=== PATIENT | male | born 1930 | race Caucasian/White ===

== ENCOUNTER 2017-09-13 13:35 | Inpatient (IN) | payer OTHER ==
--- NOTE | 2017-09-13 13:49 | EDPHY ---
H & P Stated Complaint: FELL AT [place] PARK HPI/ROS: CHIEF COMPLAINT: Left hip pain secondary to a fall HISTORY OF PRESENT ILLNESS: The patient is an 87 y/o male complaining of left hip pain secondary to falling today. While walking his dog he tripped over the leash and landed on his left hip. He has been unable to bear weight on the leg since, but was able to drive himself to the hospital. Denies chest pain, loss of consciousness, hitting his head, numbness, weakness, other injury. REVIEW OF SYSTEMS: A ten point review of systems was performed and is negative with the exception of the items mentioned in the HPI. Past medical history: Hypertension Bronchitis Past surgical history: L4-5 Fusion Cervical fusion, 2012 Tonsillectomy Family history: Noncontributory Social history: Lives in [place] [employer] General Appearance: Alert. Vital signs reviewed. Blood pressure 159/98. Room air pulse ox 84% at triage. Head: Normocephalic, atraumatic. Eyes: Pupils equal and round, no conjunctival injection, no discharge. Anicteric. ENT, Mouth: Mucous membranes are moist, no oropharyngeal erythema or edema. Neck: Nontender to palpation over the cervical spine in the midline. Respiratory: Lungs are clear to auscultation; no wheezes, rales, or rhonchi. Cardiovascular: Regular rate and rhythm; no murmur, rub, or gallop. Gastrointestinal: Abdomen is soft and nontender, no masses or organomegaly, bowel sounds normal. Skin: Warm and dry, no rashes on exposed skin, normal color. Back: Nontender to palpation over the thoracolumbar spine. Extremities: Left hip tenderness with palpation laterally. No swelling or bruising. Pain with attempt to move left leg, prefers to keep leg flexed at knee and hip. Slightly foreshortened, no obvious external rotation. Pulses:2+ dorsalis pedis pulses bilaterally. Neurological: Alert and oriented. PERRL. EOMI. Facial expressions symmetric. Tongue midline. Sensation intact to LT over all four extremities. Grossly normal strength RLE, bilateral UEs. Psychiatric: Normal affect. - Personal History Tetanus Vaccine Date: >10 YRS 1998 - Medical/Surgical History Hx Asthma: No Hx Chronic Respiratory Disease: No Hx Diabetes: No Hx Cardiac Disease: No Hx Renal Disease: No Hx Cirrhosis: No Hx Alcoholism: No Hx HIV/AIDS: No Hx Splenectomy or Spleen Trauma: No Other PMH: PMH: ortho surgeries L4-5 fusion, cervical fusion 2011. PSH: tonsels. htn, bronchitis, pain, pna - Social History Smoking Status: Former smoker Constitutional: Initial Vital Signs Temperature (C) 36.7 C 09/13/17 13:43 Heart Rate 71 09/13/17 13:43 Respiratory Rate 16 09/13/17 13:43 Blood Pressure 159/98 H 09/13/17 13:43 O2 Sat (%) 84 L 09/13/17 13:43 O2 Delivery Mode Nasal Cannula O2 (L/minute) 2 Allergies/Adverse Reactions: Penicillins Allergy (Intermediate, Verified 09/23/11 15:04) KNUCKLES SWE Home Medications: Medication Instructions Recorded Aspirin [Aspirin 81mg (*)] 81 mg PO BID 09/19/11 Herbals/Supplements -Info Only 1 ea PO DAILY 09/19/15 Calcium Carbonate [Oyster Shell 500 mg PO DAILY 02/01/16 Calcium 500 mg (*)] Cholecalciferol Vit D3 [Vitamin D3 1,000 units PO DAILY 02/01/16 (*)] Cyanocobalamin [Vitamin B12 (*)] 1,000 mcg PO DAILY 02/01/16 Gabapentin 100 mg PO HS PRN 02/01/16 Glucosam/Chondr/Collagn/Hyalur 1 each PO BID 02/01/16 [Glucosamine & Chondroitin Cap] Melatonin [Melatonin 3 MG (*)] 3 mg PO HS PRN 02/01/16 Multivitamins [Multivitamin (*)] 1 each PO DAILY 02/01/16 [place]-3 Fatty Acids [Fish Oil 1000 2,000 mg PO DAILY 02/01/16 mg (*)] Acetaminophen [Tylenol 325mg (*)] 650 mg PO Q4 PRN #0 tab 02/03/16 Cyclobenzaprine [Flexeril 10 MG 10 mg PO TID PRN 09/13/17 (*)] Ibuprofen [Motrin (*)] 200 mg PO Q8 PRN 09/13/17 Sennosides/Docusate Sodium 1 - 2 tab PO BID tab 09/16/17 [Senokot-S] Tears/Dextran 70/Hypromellose 1 drop EACHEYE Q2HRS PRN opht.btl 09/16/17 [Natural Balance Tears (*)] oxyCODONE IR [Oxycodone Ir (*)] 2.5 - 5 mg PO Q4 PRN tab 09/16/17 Medical Decision Making - Diagnostics Imaging: I viewed and interpreted images myself ED Course/Re-evaluation: The patient is an 87 y/o male presenting with left hip pain and inability to bear weight on his left leg secondary to tripping over a dog leash today. On exam he has 2+ dorsalis pedis pulses. His O2Sats are 84% at triage, he is normally between 92-94%. 75mcg IV Fentanyl administered. Last ate and drank at 10:00 this morning. No fracture visible on left hip Xray. 1442: Reassessed patient and discussed imaging findings. He is still unable to bear weight on his left leg. Left hip CT ordered. 1515: Nurse reports that the patient declined Fentanyl initially, but is now wanting some pain medication. 1700: Consulted with Dr. Haji, orthopedic surgeon. CT scan shows a left non- displaced femoral neck fracture. Dr. Haji will admit him for surgery today. 1706: Reassessed patient and discussed imaging results. I have also discussed the plan for admission and surgery; patient is comfortable with this plan. 1714: Spoke with Dr. Vail, hospitalist, he will see patient in ED to medically clear him for surgery. EKG evaluated by me and reported in [facility]. LBBB--not new per patient. CXR without acute findings. Labs reviewed. Differential Diagnosis: DDX includes but is not limited to hip fracture, hip dislocation, sprain/strain , bursitis, vertebral fracture. - Data Points Laboratory Results: Laboratory Results 09/13/17 14:35 09/13/17 14:35 Medications Given: Acetaminophen (Tylenol) 650 mg PO Q4HRS PRN PRN Reason: Pain, Mild/Fever, Can Take PO Stop: 03/12/18 17:16 Last Admin: 09/16/17 07:58 Dose: 650 mg Bisacodyl (Dulcolax Rectal) 10 mg OR DAILY PRN; Protocol PRN Reason: Constipation Stop: 03/12/18 17:57 Last Admin: 09/15/17 17:07 Dose: 10 mg Calcium Carbonate (Oyster Shell Calcium) 500 mg PO DAILY [facility] Stop: 03/13/18 08:59 Last Admin: 09/16/17 07:58 Dose: 500 mg Cholecalciferol (Vitamin D) 1,000 units PO DAILY [facility] Stop: 03/13/18 08:59 Last Admin: 09/16/17 07:58 Dose: 1,000 units Cyclobenzaprine HCl (Flexeril) 10 mg PO TID PRN PRN Reason: Spasms Stop: 03/12/18 19:52 Last Admin: 09/13/17 22:51 Dose: 10 mg Enoxaparin Sodium (Lovenox) 40 mg SC DAILY [facility] Stop: 03/14/18 08:59 Last Admin: 09/16/17 07:57 Dose: 40 mg Glucosamine/Chondroitin (Glucosamine/Chondroitin) 1 each PO BID [facility] Stop: 03/12/18 20:59 Last Admin: 09/16/17 07:58 Dose: 1 each Miscellaneous Medication (Non-Formulary) 1 ea PO TIDMEAL [facility] Stop: 03/13/18 11:59 Last Admin: 09/16/17 11:58 Dose: 1 cap Miscellaneous Medication (Non-Formulary) 3 ea PO DAILY [facility] Stop: 03/13/18 08:59 Last Admin: 09/16/17 07:59 Dose: 3 cap Multivitamins (Tab-A-Feliciano) 1 each PO DAILY [facility] Stop: 03/13/18 08:59 Last Admin: 09/16/17 07:58 Dose: 1 each Evyix-0-Hznx Ethyl Esters (Fish Oil) 2,000 mg PO DAILY [facility] Stop: 03/13/18 08:59 Last Admin: 09/16/17 07:58 Dose: 2,000 mg Oxycodone HCl (Oxycodone Ir) 2.5 - 5 mg PO Q4 PRN PRN Reason: Pain, Severe Able to Take PO Stop: 09/23/17 17:16 Last Admin: 09/16/17 11:57 Dose: 5 mg Polyethylene Glycol (Miralax) 17 gm PO DAILY PRN; Protocol PRN Reason: Constipation, patient prefers Stop: 03/12/18 17:57 Last Admin: 09/16/17 07:59 Dose: 17 gm Senna/Docusate Sodium (Senokot-S) 1 - 2 tab PO BID [facility] PRN Reason: Protocol Stop: 03/12/18 20:59 Last Admin: 09/16/17 07:57 Dose: 2 tab Vitamin B Complex (Vitamin B12) 1,000 mcg PO DAILY [facility] Stop: 03/13/18 08:59 Last Admin: 09/16/17 07:58 Dose: 1,000 mcg Discontinued Medications Bupivacaine HCl (Sensorcaine 0.5% Vial) Confirm Administered Dose 30 ml .ROUTE .STK-MED ONE Stop: 09/13/17 17:30 Last Admin: 09/13/17 18:00 Dose: 30 ml Fentanyl (Sublimaze) 75 mcg IVP EDNOW ONE Stop: 09/13/17 14:09 Last Admin: 09/13/17 14:40 Dose: Not Given Fentanyl (Sublimaze) 50 mcg IVP EDNOW ONE Stop: 09/13/17 15:26 Last Admin: 09/13/17 15:34 Dose: 50 mcg Fentanyl (Sublimaze) 25 - 100 mcg IVP Q5M PRN PRN Reason: PACU, IMMEDIATE Pain control Stop: 09/13/17 20:05 Last Admin: 09/13/17 20:02 Dose: 25 mcg Hydromorphone HCl (Dilaudid) 0.2 mg IVP Q2HRS PRN PRN Reason: Pain, Severe Unable to Take PO Stop: 09/23/17 19:36 Last Admin: 09/14/17 00:40 Dose: 0.2 mg Sodium Chloride (Ns) 1,000 mls @ 100 mls/hr IV EDNOW ONE Stop: 09/14/17 03:11 Last Admin: 09/13/17 17:16 Dose: 1,000 mls Cefazolin Sodium 2 gm/ Sodium (Chloride) 100 mls @ 200 mls/hr IV EDNOW ONE PRN Reason: Protocol Stop: 09/13/17 18:28 Last Admin: 09/13/17 22:10 Dose: Not Given Potassium Chloride/Dextrose/Sod Cl (D5w 1/2 Ns W/ 20 Kcl/L) 1,000 mls @ 100 mls /hr IV CONT [facility] Stop: 03/12/18 18:14 Last Admin: 09/14/17 00:41 Dose: 1,000 mls Influenza Virus Vaccine Quadrival (Fluarix Quad [id number]) 0.5 ml IM .ONCE ONE Stop: 09/14/17 14:54 Last Admin: 09/14/17 15:23 Dose: 0.5 ml Lidocaine HCl (Lidocaine Hcl 1%) Confirm Administered Dose 300 mg .ROUTE .STK- MED ONE Stop: 09/13/17 17:30 Last Admin: 09/13/17 18:00 Dose: 300 mg Morphine Sulfate (Morphine) 0.5 - 2 mg IVP Q2 PRN PRN Reason: Pain, Severe Unable to Take PO Stop: 09/23/17 17:16 Last Admin: 09/14/17 01:52 Dose: 2 mg Oxycodone HCl (Oxycodone Ir) 2.5 - 10 mg PO Q4 PRN PRN Reason: Pain, Severe Able to Take PO Stop: 09/23/17 17:16 Last Admin: 09/15/17 05:44 Dose: 5 mg Pneumococcal 13-Valent Conj Vacc (Prevnar 13 Syringe) 0.5 ml IM .ONCE ONE Stop: 09/14/17 14:54 Last Admin: 09/14/17 15:19 Dose: 0.5 ml Potassium Chloride (Klor-Con) 10 - 40 meq PO ONCE ONE PRN Reason: Protocol Stop: 09/14/17 07:04 Last Admin: 09/14/17 09:52 Dose: 10 meq Potassium Chloride (Klor-Con) 10 - 40 meq PO ONCE ONE PRN Reason: Protocol Stop: 09/14/17 09:46 Last Admin: 09/14/17 10:30 Dose: Not Given Potassium Chloride (Klor-Con) 10 - 40 meq PO ONCE ONE PRN Reason: Protocol Stop: 09/14/17 19:30 Last Admin: 09/14/17 20:45 Dose: 20 meq Potassium Chloride (Klor-Con) 10 meq PO ONCE ONE PRN Reason: Protocol Stop: 09/15/17 08:21 Last Admin: 09/15/17 08:55 Dose: 10 meq Departure - Departure Disposition: [facility] Acute Clinical Impression: Hip fracture, left Qualifiers: Encounter type: initial encounter Fracture type: closed Qualified Code(s): S72.002A - Fracture of unspecified part of neck of left femur, initial encounter for closed fracture Condition: Fair Report Scribed for: Tiana Pederson Report Scribed by: Janine Ron Date of Report: 09/13/17 Time of Report: 14:06 Physician Review and Approval Statement: 09/13/17 13:49 Portions of this note were transcribed by the medical transcriber. I, Dr. Tiana Pederson, personally performed the history, physical exam, and medical decision- making; and confirmed the accuracy of the information in the transcribed note.
[2017-09-13] MEDS ORDERED: fentaNYL 100 MCG/2 ML INJ IVP ONE ×2 (14:08→15:25)
[2017-09-13 17:10] LABS: % IMMATURE GRANULYOCYTES 0.4 % (0.0-1.1); ABSOLUTE IMMATURE GRANULOCYTES 0.08 10^3/uL (0.00-0.10); ADD DIFF? NO; ADD MORPH? NO; ADD SCAN? NO; ATYPICAL LYMPHOCYTE FLAG 0 (0-99); FRAGMENT RBC FLAG 0 (0-99); HEMATOCRIT 46.7 % (40.0-51.0); HEMOGLOBIN 16.1 g/dL (13.7-17.5); LEFT SHIFT FLG 0 (0-99); LIPEMIA HEMOLYSIS FLAG 90 (0-99); MEAN CELL HEMOGLOBIN 31.8 pg (27.9-34.1); MEAN CELL HEMOGLOBIN CONCENTR. 34.5 g/dL (32.4-36.7); MEAN CELL VOLUME 92.3 fL (81.5-99.8); MEAN PLATELET VOLUME 9.8 fL (8.7-11.7); PLATELET CLUMPS FLAG 10 (0-99); PLATELET COUNT 158 10^3/uL (150-400); RED BLOOD CELL COUNT 5.06 10^6/uL (4.40-6.38); RED CELL DISTRIBUTION WIDTH 13.9 % (11.5-15.2)
[2017-09-13] MEDS ORDERED: NS 1,000 ML IV ONE (17:12)
[2017-09-13] MEDS ORDERED: ONDANSETRON 4 MG/2 ML VIAL IVP PRN ×2 (17:17→19:05)
[2017-09-13] MEDS ORDERED: ONDANSETRON DISINTEGRATING 4 MG TAB PO PRN (17:17)
[2017-09-13 17:18] LABS: ANION GAP 11 mEq/L (8-16); CARBON DIOXIDE 27 mEq/l (22-31); CHLORIDE 104 mEq/L (97-110); CREATININE 1.3 mg/dL (0.7-1.3); GLOMERULAR FILTRATION RATE 52; GLUCOSE 94 mg/dL (70-100); POTASSIUM 3.3 mEq/L (3.5-5.2); SODIUM 142 mEq/L (134-144)
--- NOTE | 2017-09-13 17:22 | CPEKG ---
Heart Rate: 70 RR Interval: 857 QRSD Interval: 168 QT Interval: 452 QTC Interval: 488 QRS [place]: -69 T Wave [place]: 112 EKG Severity - ABNORMAL ECG - EKG Impression: ACCELERATED JUNCTIONAL RHYTHM EKG Impression: LEFT BUNDLE BRANCH BLOCK Electronically Signed By: Tiana Pederson 13-Sep-2017 20:51:16
[2017-09-13] MEDS ORDERED: BUPIVACAINE 0.5% 30 ML SDV ONE (17:29)
[2017-09-13] MEDS ORDERED: LIDOCAINE 1% 300 MG/30 ML SDV ONE (17:29)
[2017-09-13] MEDS ORDERED: D5W 1/2 NS 1,000 ML IV SCH (17:30)
[2017-09-13 17:38] LABS: INR 1.08 (0.83-1.16); PROTIME(PATIENT) 13.9 SEC (12.0-15.0)
[2017-09-13 17:39] LABS: APTT 31.6 SEC (23.0-38.0)
[2017-09-13] MEDS ORDERED: MAGNESIUM HYDROXIDE 30 ML UDCUP PO PRN (17:58)
[2017-09-13] MEDS ORDERED: LACTULOSE 20 GM/30 ML UDCUP PO PRN (17:58)
[2017-09-13] MEDS ORDERED: BISACODYL 10 MG SUPP PR PRN (17:58)
[2017-09-13] MEDS ORDERED: ceFAZolin 2 GM in NS 100 ML IV ONE (17:59)
[2017-09-13] MEDS ORDERED: ceFAZolin 2 GM/SWFI 20 ML SYR IVP ONE (18:00)
--- NOTE | 2017-09-13 18:02 | PDGENHP ---
History and Physical - Chief Complaint Acute hip pain - History of Present Illness Primary care provider: Dr. Damaris Hannon Primary neurosurgeon Dr. Cristino Flower Primary neurologist: Dr. Hesham Kuhn Primary customizer: Dr. Shon Calhoun HPI: 87-year-old male presenting with acute pain characterized as sharp, located in his left hip, with associated mechanical fall, onset of symptoms on the afternoon of presentation and duration persistent thereafter. The patient had otherwise been feeling well when he went to the dog park with his husky. His testes recently been noted and was behaving very aggressively, and the patient attempted to stabilize the dog. This resulted in a mechanical fall, landing on his left hip, immediately experiencing pain. The patient attempted to ambulate, experienced exacerbation of his pain, was unable to ambulate. He required physical assistance to get to the emergency department. Upon arrival, he received IV pain medication and this seemed to alleviate some of his pain, at rest. Patient's leg is notably externally rotated and shortened, and CT did identify a nondisplaced femoral neck fracture. Patient took all his home medications on the morning of presentation, he reports that approximately 6 weeks ago experienced an acute gout flare. He treated that flare with prednisone, indomethacin, and held his daily aspirin dose. He has not recently been taking aspirin as result of that. He otherwise reports that he has been eating and drinking well, urinating regularly and moving his bowels normally. Is not currently receiving any narcotic pain medication. He reports that he participates and calisthenics exercises 4-5 times per week, and he engage in these on the morning of presentation. He has not recently noted any chest pain or reduction in exercise tolerance. History Information - Allergies/Home Medication List Allergies/Adverse Reactions: Penicillins Allergy (Intermediate, Verified 09/23/11 15:04) DHAVAL SAMAYOA Home Medications: Aspirin [Aspirin 81mg (*)] 81 mg PO BID 09/19/11 [Last Taken 09/19/15] Herbals/Supplements -Info Only 1 ea PO DAILY 09/19/15 [Last Taken Unknown] Calcium Carbonate [Oyster Shell Calcium 500 mg (*)] 500 mg PO DAILY 02/01/16 [ Last Taken Unknown] Cholecalciferol Vit D3 [Vitamin D3 (*)] 1,000 units PO DAILY 02/01/16 [Last Taken Unknown] Cyanocobalamin [Vitamin B12 (*)] 1,000 mcg PO DAILY 02/01/16 [Last Taken ] Gabapentin 100 mg PO HS PRN 02/01/16 [Last Taken Unknown] Glucosam/Chondr/Collagn/Hyalur [Glucosamine & Chondroitin Cap] 1 each PO BID 05/11 [Last Taken Unknown] Melatonin [Melatonin 3 MG (*)] 3 mg PO HS PRN 02/01/16 [Last Taken Unknown] Multivitamins [Multivitamin (*)] 1 each PO DAILY 02/01/16 [Last Taken Unknown] [place]-3 Fatty Acids [Fish Oil 1000 mg (*)] 2,000 mg PO DAILY 02/01/16 [Last Taken Unknown] Cyclobenzaprine [Flexeril 10 MG (*)] 10 mg PO TID PRN 09/13/17 [Last Taken Unknown] Hydrochlorothiazide [HCTZ (*)] 25 mg PO DAILY 09/13/17 [Last Taken 09/13/17] Ibuprofen [Motrin (*)] 200 mg PO Q8 PRN 09/13/17 [Last Taken Unknown] Indomethacin [Indocin 25 mg (*)] 25 mg PO Q8 PRN 09/13/17 [Last Taken Unknown] I have personally reviewed and updated: family history, medical history, social history, surgical history - Past Medical History Additional medical history: Reportedly left bundle branch block. Chronic kidney disease stage 3 with baseline creatinine 1.1-1.3. Gout. Chronic neck and back pain. Chronic nocturnal hypoxia, has been recommended home oxygen. Chronic mechanical falls - Surgical History Additional surgical history: Cervical and lumbar spine fusion in 2014. Tonsillectomy - Family History Additional family history: Mother and father both had cancer and in their 60s - Social History Smoking Status: Former smoker Alcohol Use: None Drug Use: None Additional social history: Reports good physical exercise tolerance, active on a daily basis Review of Systems Review of Systems: ROS: 10pt was reviewed & negative except for what was stated in HPI & below Muscolosketal: Reports: other (Left hip pain) Physical Exam Physical Exam: Temp Pulse Resp BP Pulse Ox 36.9 C 70 16 141/67 H 95 09/13/17 17:52 09/13/17 17:52 09/13/17 17:52 09/13/17 17:52 09/13/17 17:52 O2 (L/minute) 2 Constitutional: no apparent distress, appears nourished, chronically ill appearing, uncomfortable Eyes: PERRL, anicteric sclera, EOMI Ears, Nose, Mouth, Throat: hearing normal, dry mucous membranes Cardiovascular: regular rate and rhythym, no murmur, rub, or gallop, edema ( Trace bilateral lower extremity edema) Respiratory: no respiratory distress, no rales or rhonchi, clear to auscultation Gastrointestinal: normoactive bowel sounds, soft, non-tender abdomen, no palpable masses, No distension Skin: other (No erythema or ecchymoses over left hip) Musculoskeletal: other (Left lower extremity is shortened and externally rotated , tenderness over the left hip laterally) Neurologic: AAOx3, sensation intact bilaterally, No weakness (Motor strength 5/ 5 bilateral distal feet) Psychiatric: interacting appropriately, not anxious, not encephalopathic, thought process linear Lab Data & Imaging Review 09/13/17 14:35 09/13/17 14:35 WBC 18.80 10^3/uL (3.80-9.50) H 09/13/17 14:35 RBC 5.06 10^6/uL (4.40-6.38) 09/13/17 14:35 Hgb 16.1 g/dL (13.7-17.5) 09/13/17 14:35 Hct 46.7 % (40.0-51.0) 09/13/17 14:35 MCV 92.3 fL (81.5-99.8) 09/13/17 14:35 MCH 31.8 pg (27.9-34.1) 09/13/17 14:35 MCHC 34.5 g/dL (32.4-36.7) 09/13/17 14:35 RDW 13.9 % (11.5-15.2) 09/13/17 14:35 Plt Count 158 10^3/uL (150-400) 09/13/17 14:35 MPV 9.8 fL (8.7-11.7) 09/13/17 14:35 Neut % (Auto) 70.1 % (39.3-74.2) 09/13/17 14:35 Lymph % (Auto) 25.0 % (15.0-45.0) 09/13/17 14:35 Hand % (Auto) 4.1 % (4.5-13.0) L 09/13/17 14:35 Eos % (Auto) 0.2 % (0.6-7.6) L 09/13/17 14:35 Baso % (Auto) 0.2 % (0.3-1.7) L 09/13/17 14:35 Nucleat RBC Rel Count 0.0 % (0.0-0.2) 09/13/17 14:35 Absolute Neuts (auto) 13.18 10^3/uL (1.70-6.50) H 09/13/17 14:35 Absolute Lymphs (auto) 4.70 10^3/uL (1.00-3.00) H 09/13/17 14:35 Absolute Monos (auto) 0.77 10^3/uL (0.30-0.80) 09/13/17 14:35 Absolute Eos (auto) 0.03 10^3/uL (0.03-0.40) 09/13/17 14:35 Absolute Basos (auto) 0.04 10^3/uL (0.02-0.10) 09/13/17 14:35 Absolute Nucleated RBC 0.00 10^3/uL (0-0.01) 09/13/17 14:35 Immature Gran % 0.4 % (0.0-1.1) 09/13/17 14:35 Immature Gran # 0.08 10^3/uL (0.00-0.10) 09/13/17 14:35 PT 13.9 SEC (12.0-15.0) 09/13/17 14:35 INR 1.08 (0.83-1.16) 09/13/17 14:35 APTT 31.6 SEC (23.0-38.0) 09/13/17 14:35 Sodium 142 mEq/L (134-144) 09/13/17 14:35 Potassium 3.3 mEq/L (3.5-5.2) L 09/13/17 14:35 Chloride 104 mEq/L (97-110) 09/13/17 14:35 Carbon Dioxide 27 mEq/l (22-31) 09/13/17 14:35 Anion Gap 11 mEq/L (8-16) 09/13/17 14:35 BUN 30 mg/dL (7-23) H 09/13/17 14:35 Creatinine 1.3 mg/dL (0.7-1.3) 09/13/17 14:35 Estimated GFR 52 09/13/17 14:35 Glucose 94 mg/dL (70-100) 09/13/17 14:35 Calcium 10.0 mg/dL (8.5-10.4) 09/13/17 14:35 Visualized and Interpreted EKG results: Yes EKG Interpretation: Positive for: left bundle branch block Assessment & Plan Assessment: 87-year-old male presenting with acute left femoral neck fracture requiring surgical intervention Plan: 1. Femoral neck fracture. Acute, present on CT imaging, secondary to mechanical fall -discussed with Dr. Nick Seymour, we agree that patient should go to the OR this evening and that no further cardiac risk stratification is indicated -RCRI score is 1, conferring 1.5% perioperative risk of cardiovascular morbidity and/or mortality, resulting in low CV risk for an intermediate risk surgery -to mitigate such risks, would recommend monitoring his renal function postoperatively, monitoring for any evidence of chest pain, anticipate that he will require ongoing supplemental oxygen at time of discharge given that he has was describes nocturnal hypoxia and possibly chronic hypoxic respiratory failure -pain medication as needed, bowel regimen ordered, incentive spirometer ordered -continue to monitor serum hemoglobin postoperatively -NPO presently, can be advanced to regular diet thereafter 2. Left bundle-branch block. Reportedly chronic per patient, order outside records from Dr. Calhoun office to verify this, patient currently with no chest pain and normal exercise tolerance, no further cardiac risk stratification indicated at this time -reviewed outside records demonstrates last known stress test in 2010, reportedly normal -patient currently holding aspirin following his gout flare 6 weeks ago, recommend initiating aspirin postoperatively depending on whether there are any bleeding risks 3. Chronic kidney disease stage 3. Baseline serum creatinine 1.1-1.3, continue to monitor postoperatively 4. Suspected chronic hypoxic respiratory failure. Status post bronchoscopy in 2010, no malignancy seen at that time, is been recommend to the patient that he utilize at least nocturnal oxygen and possibly daytime -continue on supplemental oxygen at this time, gather room air sats postoperatively use incentive spirometer 5. Hypertension. Patient has had numerous antihypertensives discontinued recently, his systolic blood pressure is mildly elevated in the setting of pain , continue to monitor and consider restarting antihypertensive postoperatively if needed 6. Mechanical fall. Patient is high risk for ongoing mechanical falls, and review of outside records including 02/03/[address] Edy Vail reports that the patient had paresis in mechanical falls in the setting of acute gout flare, as recommended the patient that he follow up with Neurology and obtain an outpatient EMG -anticipate protracted recovery following his hip repair, physical occupational therapy ordered, senior living facility placement hereafter is certainly possible Diet. Regular after surgery Prophylaxis. High risk patient, SCDs perioperatively, Lovenox 40 to begin on 11 /8:00 p.m. if no bleeding complications Code. Full per patient, is MPOA Disposition. Anticipated discharge is uncertain this time, anticipated length stay is greater than 48 hours for reasonable medical necessity including acute hip fracture warranting surgical repair in the setting of anticipated protracted recovery with baseline chronic mechanical falls. Discussed with Dr. Tiana Pederson in the emergency department, she and I both agreed the patient warrants inpatient admission at this time for surgical repair.
--- NOTE | 2017-09-13 18:05 | SOAPPROG ---
SOAP Progress Note Assessment/Plan: Assessment: Tong is a pleasant 87 year old male who sustained a fall onto his left hip earlier today. He was unable to weight bear and was taken to [facility] ER where he was found to have a nondisplaced femoral neck fracture. PE: Pain with passive ROM of the left hip TTP overlying the left hip NV intact LLE Plan: Risks, benefits, alternatives to both operative and non-operative treatment were discussed. Patient fully understands the risks, benefits, and alternatives and would like to proceed with left femoral neck ORIF. Medical clearance was obtained from the hospitalist and he will be taken to the operating room at its earliest availability. 09/13/17 18:03 Objective: Vital Signs Temp Pulse Resp BP Pulse Ox 36.9 C 70 16 141/67 H 95 09/13/17 17:53 09/13/17 17:53 09/13/17 17:53 09/13/17 17:53 09/13/17 17:53 09/12/17 09/13/17 09/14/17 05:59 05:59 05:59 Intake Total 250 Balance 250 PT 13.9 SEC (12.0-15.0) 09/13/17 14:35 INR 1.08 (0.83-1.16) 09/13/17 14:35 ICD10 Worksheet Patient Problems: Problems Problem Status Onset Hip fracture, left Acute Anemia Acute Frequent falls Acute Generalized weakness Acute Left lower lobe pneumonia Acute Left rib fracture Acute Chronic obstructive lung disease Chronic Hypertension Chronic
--- NOTE | 2017-09-13 18:07 | SOAPPROG ---
SOAP Progress Note Assessment/Plan: Assessment: Tong is a pleasant 87 year old male now POD#0 from left femoral neck ORIF. PE: Operative dressing in place NV intact LLE Plan: 1. WBAT LLE with assistance 2. PT/OT for gait training 3. Reinforce dressing if needed. 4. Lovenox for DVT prophylaxis 5. Pain medication as needed 6. H&H tomorrow AM 7. Case management referral for discharge planning. 09/13/17 19:41 Objective: Vital Signs Temp Pulse Resp BP Pulse Ox 36.9 C 70 16 141/67 H 95 09/13/17 17:53 09/13/17 17:53 09/13/17 17:53 09/13/17 17:53 09/13/17 17:53 09/12/17 09/13/17 09/14/17 05:59 05:59 05:59 Intake Total 250 Balance 250 PT 13.9 SEC (12.0-15.0) 09/13/17 14:35 INR 1.08 (0.83-1.16) 09/13/17 14:35 ICD10 Worksheet Patient Problems: Problems Problem Status Onset Hip fracture, left Acute Anemia Acute Frequent falls Acute Generalized weakness Acute Left lower lobe pneumonia Acute Left rib fracture Acute Chronic obstructive lung disease Chronic Hypertension Chronic
--- NOTE | 2017-09-13 18:07 | PDANEPAE ---
ANE History of Present Illness 87 year old male for ORIF of left hip. ANE Past Medical History - Cardiovascular History Hx Hypertension: Yes Hx Arrhythmias: No Hx Chest Pain: No Hx Coronary Artery / Peripheral Vascular Disease: No Hx CHF / Valvular Disease: No Hx Palpitations: No Cardiovascular History Comment: LBBB, junctional rhythm - Pulmonary History Hx COPD: No Hx Asthma/Reactive Airway Disease: No Hx Recent Upper Respiratory Infection: No Hx Oxygen in Use at Home: No Hx Sleep Apnea: No - Endocrine History Hx Diabetes: No Hypothyroid: No Hyperthyroid: No Obesity: no - Renal History Hx Renal Disorders: No - Liver History Hx Hepatic Disorders: No - Neurological & Psychiatric Hx Hx Neurological and Psychiatric Disorders: No - Cancer History Hx Cancer: No - Chronic Pain History Chronic Pain: Yes ANE Review of Systems Review of systems is: negative Review of Systems: - Exercise capacity Exercise capacity: <4 METS ANE Patient History - Allergies Allergies/Adverse Reactions: Penicillins Allergy (Intermediate, Verified 09/23/11 15:04) DHAVAL SAMAYOA - Home Medications Home medications: home medication list seen and reviewed Home Medications: Aspirin [Aspirin 81mg (*)] 81 mg PO BID 09/19/11 [Last Taken 09/19/15] Herbals/Supplements -Info Only 1 ea PO DAILY 09/19/15 [Last Taken Unknown] Calcium Carbonate [Oyster Shell Calcium 500 mg (*)] 500 mg PO DAILY 02/01/16 [ Last Taken Unknown] Cholecalciferol Vit D3 [Vitamin D3 (*)] 1,000 units PO DAILY 02/01/16 [Last Taken Unknown] Cyanocobalamin [Vitamin B12 (*)] 1,000 mcg PO DAILY 02/01/16 [Last Taken ] Gabapentin 100 mg PO HS PRN 02/01/16 [Last Taken Unknown] Glucosam/Chondr/Collagn/Hyalur [Glucosamine & Chondroitin Cap] 1 each PO BID 05/11 [Last Taken Unknown] Melatonin [Melatonin 3 MG (*)] 3 mg PO HS PRN 02/01/16 [Last Taken Unknown] Multivitamins [Multivitamin (*)] 1 each PO DAILY 02/01/16 [Last Taken Unknown] [place]-3 Fatty Acids [Fish Oil 1000 mg (*)] 2,000 mg PO DAILY 02/01/16 [Last Taken Unknown] Cyclobenzaprine [Flexeril 10 MG (*)] 10 mg PO TID PRN 09/13/17 [Last Taken Unknown] Hydrochlorothiazide [HCTZ (*)] 25 mg PO DAILY 09/13/17 [Last Taken 09/13/17] Ibuprofen [Motrin (*)] 200 mg PO Q8 PRN 09/13/17 [Last Taken Unknown] Indomethacin [Indocin 25 mg (*)] 25 mg PO Q8 PRN 09/13/17 [Last Taken Unknown] - NPO status NPO Status: no food or drink >8 hours NPO Since - Liquids (Date): 09/13/17 NPO Since - Liquids (Time): 10:00 NPO Since - Solids (Date): 09/13/17 NPO Since - Solids (Time): 10:00 - Anes Hx Anes Hx: no prior problems - Smoking Hx Smoking Status: Former smoker - Alcohol Use Alcohol Use: None - Family Anes Hx Family Anes Hx: neg - N/A ANE Labs/Vital Signs - Labs Result Diagrams: 09/13/17 14:35 09/13/17 14:35 - Vital Signs Vital Signs: reviewed preoperatively; see RN documention for details Blood Pressure: 141/67 Heart Rate: 70 Respiratory Rate: 16 O2 Sat (%): 95 Height: 182.88 cm Weight: 93.44 kg ANE Physical Exam - Airway Neck exam: FROM Mallampati Score: Class 2 Mouth exam: poor dentition, noble - Pulmonary Pulmonary: no respiratory distress - Cardiovascular Cardiovascular: regular rate and rhythym - ASA Status ASA Status: II ANE Anesthesia Plan Anesthesia Plan: general endotracheal anesthesia Total IV Anesthesia: No
[2017-09-13] MEDS ORDERED: PROPOFOL 200 MG/20 ML VIAL ONE (18:08)
[2017-09-13] MEDS ORDERED: fentaNYL 100 MCG/2 ML INJ ONE ×2 (18:08→19:50)
[2017-09-13] MEDS ORDERED: D5W 1/2 NS W/ 20 KCl/L 1,000 ML IV SCH (18:15)
[2017-09-13] MEDS ORDERED: PHENYLEPHRINE HCL 100 MCG/ML SYR ONE (18:36)
--- NOTE | 2017-09-13 18:42 | PDMN ---
Medical Necessity Medical necessity: C/M review: est. > 2 MN LOS for eval and TX of acute nondisplaced left femorla neck fracture requiring planned urgent 09/13/2017 surgical intervention, comorbid mechanical fall just prior to this admit, left bundle branch block, chronic kidney disease stage 3, suspected chronic hypoxic respiratory failure, hypertension, hx mechanical falls per H/P.
[2017-09-13] MEDS ORDERED: HYDROmorphONE/DILAUDID 1 MG/ML INJ IVP PRN ×2 (19:05→19:37)
[2017-09-13] MEDS ORDERED: NALOXONE HCL 0.4 MG/ML INJ IVP PRN (19:05)
[2017-09-13] MEDS ORDERED: HYDROCODONE/APAP 5/325 TAB PO PRN (19:05)
[2017-09-13] MEDS ORDERED: LR 500 ML IV PRN (19:05)
[2017-09-13] MEDS ORDERED: LIDOCAINE 2% 5 ML SDV ONE (19:32)
[2017-09-13] MEDS ORDERED: ROCURONIUM 50 MG/5 ML VIAL ONE (19:32)
[2017-09-13] MEDS ORDERED: ONDANSETRON 4 MG/2 ML VIAL ONE (19:32)
[2017-09-13] MEDS ORDERED: SUGAMMADEX SODIUM 200 MG/2 ML VIAL IVP ONE (19:32)
--- NOTE | 2017-09-13 19:41 | POSTOPPROG ---
Post Op Note Date of Operation: 09/13/17 Surgeon: Nick Seymour Mortar Carrier: Shweta Manzanares PA-C Anesthesia: GET(General Endotracheal) Pre-op Diagnosis: left femoral neck fracture Post-op Diagnosis: left femoral neck fracture Procedure: ORIF left femoral neck fracture Inf/Abcess present in the surg proc area at time of surgery?: No Depth: Superfical (Skin SQ) EBL: Minimal
[2017-09-13] MEDS ORDERED: GABAPENTIN 100 MG CAP PO PRN (19:53)
[2017-09-13] MEDS ORDERED: MELATONIN 3 MG TAB PO PRN (19:53)
[2017-09-13] MEDS ORDERED: CYCLOBENZAPRINE 10 MG TAB PO PRN (19:53)
[2017-09-13] MEDS: fentaNYL 100 MCG/2 ML INJ IVP PRN ×2 (19:55→20:02)
--- NOTE | 2017-09-13 22:09 | GCON ---
[f rep st] CONSULTATION Patient Name: KAVIN PELLETIER N-Number: [id number] Date of : 1930 Patient Status: Inpatient Attending Doctor: Edy Vail MD Consulting Doctor: Nick Seymour MD Date of service: 09/13/17 CPT codes: CPT code 69872 ER visit requiring admission or initial inpatient visit, level three Modifier 57 Decision for surgery CHIEF COMPLAINT: Left hip pain HISTORY OF PRESENT ILLNESS: This is a very pleasant 87 year old male with a significant history for left hip hwang after a fall from standing earlier today (09/13/17). He was unable to bear weight on his left lower extremity following the fall so he was taken to the [facility] ED for evaluation. A CT scan of his pelvis demonstrated a left femoral neck fracture which was complete but minimally displaced. PROBLEM LIST: Left femoral neck fracture PAST MEDICAL HISTORY: HTN, Bronchitis SURGERIES: L4-L5 fusion, Cervical fusion, tonsillectomy SOCIAL HISTORY: Non-contributory FAMILY HISTORY: CURRENT MEDICATIONS: Aspirin, Herbal supplements, Vitamin D3, Vitamin B12, Gabapentin, Glucosamine Chondroitin, Melatonin, Metoprolol Tartrate, Multivitamin, Fish Oil, Tylenol, Colchicine, Robaxin, Senokot, prednisone ALLERGIES: Penicillins REVIEW OF SYSTEMS Constitutional: No unexpected weight loss, weight gain, fevers, chills, or fatigue. Eyes: No blurred or double vision, no eye pain, redness or swelling. ENT: No headaches, difficulty swallowing, nose bleeds, tinnitus, or earaches. Cardiovascular: No chest pain, palpitations, fainting or murmurs. Respiratory: No shortness of breath, wheezing, cough, of difficulty breathing. GI: No reflux, no nausea or vomiting, no constipation, diarrhea, or bloody stools. Genitourinary: No urinary frequency or urgency, no pain with urination. Skin: No skin changes, rashes, itching, or redness. Neurologic: No unsteadiness of gait, no dizziness, tremors, or seizures. Psychiatric: No nervousness, anxiety, depression, or hallucinations. Hematologic: No increased bleeding or easy bruising. Endocrine: No excessive thirst or urination and no heat or cold intolerances. Allergic: No reactions to food or environment. Musculoskeletal: See history of present illness. PHYSICAL EXAM General: No apparent distress. Orientation: Alert and oriented times three Mood and affect: Calm, appropriate. Gait and station: CESAR Skin: Warm, dry. Lymph: Non tender neck, axillary and inguinal nodes. Chest: Equal expansion, no pain with deep breaths, speaks in coherent sentences. Cardiovascular: Regular pulse. Abdomen: Soft, non-tender, no masses, no palpable hernias. Bilateral hip examination Inspection/palpation: Right: Soft, non-tender. Left: TTP diffusely throughout the left hip. Pain with gentle ROM Range of motion Flexion: 100 / CESAR / 100 Extension: 30 / CESAR / 30 Abduction: 40 / CESAR / 40 Adduction: 20 / CESAR / 20 Strength (R / L / Normal) Muscle(s) Quadriceps (L3-L4): 5 / 3 / 5 Hamstrings (L4-L5): 5 / 3 / 5 Tibialis anterior (L4): 5 / 3 / 5 EHL (L5): 5 / 3 / 5 FHL (S1): 5 / 3 / 5 Gastroc-soleus (S1): 5 / 3 / 5 Sensory (R / L / Normal) Dermatomes L1 (groin): + / + / + L2 (medial upper thigh): + / + / + L3 (anterior thigh): + / + / + L4 (medial ankle): + / + / + L5 (first dorsal web space): + / + / + S1 (lateral border of foot): + / + / + Peripheral nerves Superficial peroneal: + / + / + Deep peroneal: + / + / + Sural: + / + / + Tibial: + / + / + Saphenous: + / + / + Vascular exam (R / L / Normal) Dorsalis pedis: 2+ / 2+ / 2+ Tibialis posterior: 2+ / 2+ / 2+ Medical decision making Data Imaging study: AP pelvis and left hip radiographs Action: interpreted Interpretation / pertinent findings: possible left femoral neck fracture Imaging study: CT of the pelvis Action: interpreted Interpretation / pertinent findings: left femoral neck fracture, complete, minimally displaced Diagnoses New diagnosis: left femoral neck fracture, complete, minimally displaced Work-up planned: yes: see assessment and plan Assessment and plan This is a very pleasant 87 year old male s/p a left femoral neck fracture ( complete, minimally displaced) after a fall from standing earlier today () -As such I have discussed with the patient the risks, benefits, alternatives, and complications associated with both non-operative (specifically, observation ) and operative (specifically, left femoral neck reduction and internal fixation ) forms of treatment -The patient fully understands the risks, benefits, alternatives, and complications of both forms of treatment and the patient wishes to proceed with operative intervention as outlined above - Medical clearance was obtained and patient will be taken to the operating room at its earliest availability Time I have spent 80 minutes of [id number] time with the patient during this visit. Over fifty percent of this time was spent counseling the patient on the risks, benefits, alternatives, and complications of both non-operative and operative forms of treatment as outlined above. /[id number]/MODL MTDD
[2017-09-13] MEDS: SENNOSIDES/DOCUSATE SODIUM TAB PO SCH (22:38)
[2017-09-13] MEDS: oxyCODONE IR 5 MG TAB PO PRN (22:39)
[2017-09-13] MEDS: GLUCOSAMINE/CHONDROITIN CAP PO SCH (22:39)
--- NOTE | 2017-09-13 22:39 | GOP ---
[f rep st] OPERATIVE REPORT PATIENT: KAVIN PELLETIER DATE OF SERVICE: 09/13/17 PATIENT DATE OF : 1930 SURGEON: Nick Seymour M.D. HAND MIXER: Shweta Manzanares PA-C Mrs. Miller assistance was medically necessary for patient positioning and the retraction of vital structures. ANESTHESIA: General PRE-OPERATIVE DIAGNOSES: Left femoral neck fracture (ICD-10 code S72.009A femoral neck fracture) POST-OPERATIVE DIAGNOSES: Left femoral neck fracture (ICD-10 code S72.009A femoral neck fracture) OPERATIVE PROCEDURES: CPT code 26378 Percutaneous fixation of a femoral neck fracture EBL: 3cc COMPLICATIONS: None IMPLANTS: Three Synthes 6.5 mm cannulated, short-thread compression screws (95mm , 95mm and 105mm) BRIEF CLINICAL NOTE: This is a very pleasant 87 year old male with a significant history for a left femoral neck fracture which was complete but minimally displaced after injury earlier today (09/13/17). As such, I discussed the risks, benefits, alternatives, and complications associated with both non- operative (specifically, observation) and operative (specifically, left femoral neck reduction and internal fixation) forms of treatment. The patient fully understood the risks, benefits, alternatives, and complications associated with both forms of treatment and wished to proceed with operative intervention as outlined above. The patient signed the informed consent form for surgery. OPERATIVE NOTE: On the day of surgery, all of the patients questions were answered. The patient was then transferred from the pre-operative area into the operating room and a formal, Time-Out procedure was performed. The patient was identified by name, medical record number, social security number, and date of . In addition, the patients left lower extremity was identified as the correct portion of the patients body for surgery with the patients left femur being identified as the correct portion of that extremity for surgery. The anesthesia team administered pre-operative antibiotics for prophylaxis. The patient was then transferred onto the fracture table and the left lower extremity was placed into traction. The extremity was then prepped and draped in the normal sterile fashion. A sterile marking pen was then utilized to alessia out the greater trochanter and the starting point along the lateral femoral cortex for screw insertion. A 3cm incision was then made adjacent to the starting point along the lateral femoral cortex. Meticulous hemostasis was obtained in the subcutaneous plane. The IT band fascia was then incised longitudinally to provide access to the lateral femoral cortex. C-arm fluoroscopy was then utilized to insert the first guidewire in the inferior neck position. Guidewire positioning was confirmed on both PA and lateral C-arm fluoroscopy. Next, two additional guidewires were inserted in the cheryl-superior and postero-superior positions relative to the first guidewire. Guidewire placements were once again confirmed on both PA and lateral C-arm fluoroscopy. Next, all three guidewires were measured and over- drilled. Three screws were then inserted over the guidewires and then the guidewires were removed. Final PA and lateral C-arm fluoroscopy images were obtained which demonstrated anatomic alignment at the site of the fracture as well as appropriate implant positioning and length in all views. These images were printed and saved. The wound was then copiously irrigated with sterile normal saline. The fascia was re-approximated with 2-0 vicryl sutures and the skin was re-approximated with a 3-0 monocryl. Dermabond was then applied to the incision. Next, a mixture of 1% lidocaine and 0.5% Marcaine was then utilized to provide local anesthesia at the operative site. The skin was then cleaned with sterile normal saline and dried. A xeroform gauze dressing was then applied followed by a dry sterile dressing and an occlusive Ioban dressing. The patient was then reversed from anesthesia and transferred from the operating room table onto the post-operative gurney and transferred from the operating room to the PACU in stable condition. POST-OPERATIVE PLAN: The current dressing will be left in place for the next 2 days. The patient may WBAT on the left lower extremity. /[id number]/MODL MTDD
[2017-09-14] MEDS ORDERED: PROTOCOL POTASSIUM 1 DOSE MISC PRN (00:31)
[2017-09-14] MEDS ORDERED: TEARS/DEXTRAN 70/HYPROMELLOSE 15 ML OPHT.BTL EACHEYE PRN (00:32)
--- NOTE | 2017-09-14 00:36 | HOSPPROG ---
Hospitalist Progress Note Assessment/Plan: Hospitalist Night Float Note Paged by RN regarding pt c/o right eye pain approximtely 1 hour after arrival from PACU. No known injury. Unknown if patient had tape over his eyes. Denies any visual changes. RN has been applying normal saline drops regularly. Patient is reporting some improvement in his pain. Continues to have a little bit of tearing from the right eye. Right eye with conjunctival injection and some edema to lower lid. No evidence of cellulitis. Patient without any photophobia. I do not appreciate grossly any foreign bodies. New with p.r.n. natural tear drops. If symptoms do not resolve tomorrow may need to request Ophthalmology consult if available. Objective: Vital Signs Temp Pulse Resp BP Pulse Ox 36.9 C 69 14 129/61 H 95 09/14/17 00:11 09/14/17 00:11 09/14/17 00:11 09/14/17 00:11 09/14/17 00:11 09/12/17 09/13/17 09/14/17 05:59 05:59 05:59 Intake Total 920 Output Total 160 Balance 760 PT 13.9 SEC (12.0-15.0) 09/13/17 14:35 INR 1.08 (0.83-1.16) 09/13/17 14:35 ICD10 Worksheet Patient Problems: Problems Problem Status Onset Hip fracture, left Acute Anemia Acute Frequent falls Acute Generalized weakness Acute Left lower lobe pneumonia Acute Left rib fracture Acute Chronic obstructive lung disease Chronic Hypertension Chronic
[2017-09-14 04:52] LABS: % IMMATURE GRANULYOCYTES 0.5 % (0.0-1.1); ABSOLUTE IMMATURE GRANULOCYTES 0.08 10^3/uL (0.00-0.10); ADD DIFF? NO; ADD MORPH? NO; ADD SCAN? NO; ATYPICAL LYMPHOCYTE FLAG 10 (0-99); FRAGMENT RBC FLAG 0 (0-99); HEMATOCRIT 37.9 % (40.0-51.0); LEFT SHIFT FLG 0 (0-99); LIPEMIA HEMOLYSIS FLAG 90 (0-99); MEAN CELL HEMOGLOBIN 31.8 pg (27.9-34.1); MEAN CELL HEMOGLOBIN CONCENTR. 34.3 g/dL (32.4-36.7); MEAN CELL VOLUME 92.7 fL (81.5-99.8); MEAN PLATELET VOLUME 9.5 fL (8.7-11.7); PLATELET CLUMPS FLAG 10 (0-99); PLATELET COUNT 127 10^3/uL (150-400); RED BLOOD CELL COUNT 4.09 10^6/uL (4.40-6.38); RED CELL DISTRIBUTION WIDTH 13.6 % (11.5-15.2)
[2017-09-14 05:02] LABS: ANION GAP 8 mEq/L (8-16); CALCIUM 8.7 mg/dL (8.5-10.4); CARBON DIOXIDE 27 mEq/l (22-31); CHLORIDE 105 mEq/L (97-110); CREATININE 1.2 mg/dL (0.7-1.3); GLOMERULAR FILTRATION RATE 57; GLUCOSE 190 mg/dL (70-100); MAGNESIUM 1.6 mg/dL (1.6-2.3); POTASSIUM 3.7 mEq/L (3.5-5.2); SODIUM 140 mEq/L (134-144)
[2017-09-14] MEDS ORDERED: POTASSIUM CL 10 MEQ TAB PO ONE ×3 (07:03→19:29)
[2017-09-14] MEDS ORDERED: Herbals/Supplements -Info Only PO SCH (09:00)
--- NOTE | 2017-09-14 09:11 | HOSPPROG ---
Hospitalist Progress Note Assessment/Plan: 87-year-old male presenting with acute left femoral neck fracture requiring surgical intervention. Today is my 1st encounter with the patient. Chart reviewed. * femoral neck fracture -status post reduction and fixation -reviewed his care with Shweta Manzanares, physician home based assistant with Dr. Toths *Leukocytosis -was recently on prednisone for an URI -he is afebrile * left bundle branch block -chronic *thrombocytopenia -follow * chronic kidney disease stage 3 * suspected hypoxemic respiratory failure -recent URI, also r/t post op atelectasis * hypertension -stable * gait instability with mechanical fall -working with PT and OT *dvt prophylaxis: LMWH *Plan: dc iv fluids, remove borja, continue supportive care. Repeat labs in a.m. Appreciate orthopedics. 1 Subjective: Calin has no complaints except pain in hip when he stands. Objective: Vital Signs Temp Pulse Resp BP Pulse Ox 37.1 C 74 20 127/67 H 95 09/14/17 07:26 09/14/17 07:26 09/14/17 07:26 09/14/17 07:26 09/14/17 07:26 Laboratory Results 09/14/17 04:16 09/14/17 04:16 09/13/17 09/14/17 09/15/17 05:59 05:59 05:59 Intake Total 1420 Output Total 410 Balance 1010 PT 13.9 SEC (12.0-15.0) 09/13/17 14:35 INR 1.08 (0.83-1.16) 09/13/17 14:35 - Physical Exam Constitutional: no apparent distress, appears nourished, not in pain, chronically ill appearing Eyes: PERRL Ears, Nose, Mouth, Throat: hard of hearing Cardiovascular: regular rate and rhythym Respiratory: no respiratory distress, reduced air movement (right base) Gastrointestinal: normoactive bowel sounds Genitourinary: borja in urethra Skin: warm Musculoskeletal: generalized weakness Neurologic: AAOx3 Psychiatric: interacting appropriately ICD10 Worksheet Patient Problems: Problems Problem Status Onset Hip fracture, left Acute Anemia Acute Frequent falls Acute Generalized weakness Acute Left lower lobe pneumonia Acute Left rib fracture Acute Chronic obstructive lung disease Chronic Hypertension Chronic
[2017-09-14] MEDS: ACETAMINOPHEN 325 MG TAB PO PRN ×2 (09:12→16:46)
[2017-09-14] MEDS: MULTIVITAMINS 1 EACH TAB PO SCH (09:15)
[2017-09-14] MEDS: CYANO/VITAMIN B12 1000 MCG TAB PO SCH (09:15)
--- NOTE | 2017-09-14 09:17 | ASMTCMCOM ---
CM Note CM Note Notes: Patient admitted after a L femoral neck fracture. He is POD #1 ORIF. Patient is normally active, independent, and relatively healthy. He lives with his Soledad who is MDPOA. Patient's discharge needs are TBD pending PT/OT evals and recommendations. CM will follow. Date Signed: 09/14/2017 09:17 AM Electronically Signed By:Angelica Brown RN
[2017-09-14] MEDS: GLUCOSAMINE/CHONDROITIN CAP PO SCH ×2 (09:18→20:46)
[2017-09-14] MEDS: SENNOSIDES/DOCUSATE SODIUM TAB PO SCH ×2 (09:19→20:46)
[2017-09-14] MEDS: OMEGA-3 FATTY ACIDS 1,000 MG CAP PO SCH (09:19)
[2017-09-14] MEDS: CHOLECALCIFEROL VIT D3 1,000 UNITS TAB PO SCH (09:20)
[2017-09-14] MEDS: CALCIUM CARBONATE 500 MG TAB PO SCH (09:20)
[2017-09-14] MEDS: PSYLLIUM PO SCH (10:44)
[2017-09-14] MEDS: PROBIOTIC PO SCH ×2 (13:11→17:51)
[2017-09-14] MEDS ORDERED: FLU VACC QS 2017-18 (3YR+)/PF 0.5 ML SYR (FLUARIX QUAD) IM ONE (14:53)
[2017-09-14] MEDS: PNEUMOC 13-VAL CONJ-DIP CRM/PF 0.5 ML SYR IM ONE ×2 (15:06→15:19)
[2017-09-14 18:28] LABS: POTASSIUM 3.5 mEq/L (3.5-5.2)
[2017-09-14] MEDS: oxyCODONE IR 5 MG TAB PO PRN (20:49)
[2017-09-15 05:09] LABS: % IMMATURE GRANULYOCYTES 0.2 % (0.0-1.1); ABSOLUTE IMMATURE GRANULOCYTES 0.03 10^3/uL (0.00-0.10); ADD DIFF? NO; ADD MORPH? NO; ADD SCAN? NO; ATYPICAL LYMPHOCYTE FLAG 0 (0-99); FRAGMENT RBC FLAG 0 (0-99); HEMATOCRIT 33.6 % (40.0-51.0); LEFT SHIFT FLG 0 (0-99); LIPEMIA HEMOLYSIS FLAG 80 (0-99); MEAN CELL HEMOGLOBIN 31.2 pg (27.9-34.1); MEAN CELL HEMOGLOBIN CONCENTR. 32.7 g/dL (32.4-36.7); MEAN CELL VOLUME 95.2 fL (81.5-99.8); MEAN PLATELET VOLUME 9.4 fL (8.7-11.7); PLATELET CLUMPS FLAG 10 (0-99); PLATELET COUNT 110 10^3/uL (150-400); RED BLOOD CELL COUNT 3.53 10^6/uL (4.40-6.38)
[2017-09-15] MEDS: oxyCODONE IR 5 MG TAB PO PRN ×3 (05:44→19:52)
[2017-09-15 08:06] LABS: ANION GAP 7 mEq/L (8-16); CALCIUM 8.5 mg/dL (8.5-10.4); CARBON DIOXIDE 31 mEq/l (22-31); CHLORIDE 101 mEq/L (97-110); CREATININE 1.2 mg/dL (0.7-1.3); GLOMERULAR FILTRATION RATE 57; GLUCOSE 137 mg/dL (70-100); POTASSIUM 3.7 mEq/L (3.5-5.2); SODIUM 139 mEq/L (134-144)
[2017-09-15] MEDS ORDERED: POTASSIUM CL 10 MEQ TAB PO ONE (08:20)
[2017-09-15] MEDS: POLYETHYLENE GLYCOL 3350 17 GM PKT PO PRN (08:53)
[2017-09-15] MEDS: ENOXAPARIN 40 MG/0.4 ML SYR SC SCH (08:53)
[2017-09-15] MEDS: CYANO/VITAMIN B12 1000 MCG TAB PO SCH (08:54)
[2017-09-15] MEDS: MULTIVITAMINS 1 EACH TAB PO SCH (08:54)
[2017-09-15] MEDS: OMEGA-3 FATTY ACIDS 1,000 MG CAP PO SCH (08:54)
[2017-09-15] MEDS: SENNOSIDES/DOCUSATE SODIUM TAB PO SCH ×2 (08:54→20:50)
[2017-09-15] MEDS: GLUCOSAMINE/CHONDROITIN CAP PO SCH ×2 (08:54→20:50)
[2017-09-15] MEDS: PROBIOTIC PO SCH ×3 (08:55→17:25)
[2017-09-15] MEDS: CHOLECALCIFEROL VIT D3 1,000 UNITS TAB PO SCH (08:55)
[2017-09-15] MEDS: CALCIUM CARBONATE 500 MG TAB PO SCH (08:55)
[2017-09-15] MEDS: PSYLLIUM PO SCH (08:56)
--- NOTE | 2017-09-15 12:30 | SOAPPROG ---
SOLISA Progress Note Assessment/Plan: Assessment: Tong is a pleasant 87 year old male now POD#2 from left femoral neck ORIF. He reports he is doing well. He reports continued pain in the hip which is improved from prior to surgery. He has been up at the bedside with physical therapy. PE: Operative dressing removed. Incision clean and dry without erythema, warmth , or drainage NV intact LLE 2+ Dorsalis pedis and posterior tibialis pulses SILT LLE No pain with gentle ROM of the hip No pain with compression of the calf Plan: 1. WBAT LLE with assistance 2. PT/OT for gait training 3. Operative dressing removed and new DSD placed. Reinforce dressing if needed 4. Lovenox for DVT prophylaxis 5. Pain medication as needed 6. Case management referral for discharge planning. Once discharged, patient will follow up with Shweta Manzanares PA-C two weeks from surgical date for repeat radiographs of the hip and suture removal. 09/15/17 12:28 Objective: Vital Signs Temp Pulse Resp BP Pulse Ox 36.7 C 78 18 117/65 94 09/15/17 11:19 09/15/17 11:19 09/15/17 07:59 09/15/17 11:19 09/15/17 11:19 Laboratory Results 09/15/17 04:12 09/15/17 04:12 09/14/17 09/15/17 09/16/17 05:59 05:59 05:59 Intake Total 1420 1130 Output Total 410 1550 125 Balance 1010 -420 -125 PT 13.9 SEC (12.0-15.0) 09/13/17 14:35 INR 1.08 (0.83-1.16) 09/13/17 14:35 ICD10 Worksheet Patient Problems: Problems Problem Status Onset Hip fracture, left Acute Anemia Acute Frequent falls Acute Generalized weakness Acute Left lower lobe pneumonia Acute Left rib fracture Acute Chronic obstructive lung disease Chronic Hypertension Chronic
--- NOTE | 2017-09-15 15:15 | HOSPPROG ---
Hospitalist Progress Note Assessment/Plan: 87-year-old male presenting with acute left femoral neck fracture requiring surgical intervention. Today is my 1st encounter with the patient. Chart reviewed. # femoral neck fracture - CT extremity (personally reviewed and interpreted) non-displaced femoral neck fracture Status post reduction and fixation 09/13 - cont PT/OT - cont prn pain control # Acute hypoxemic respiratory failure -recent URI- suspect some remnant atelectasis from OR- oxygen saturations 94% on 2L - wean O2 as able - continue IS # Leukocytosis 18-> 12 with supportive care only -was recently on prednisone for an URI- no additional localizing sx - follow clinically # left bundle branch block -chronic # thrombocytopenia- platelets 110 this am -recheck in am # chronic kidney disease stage 3 # hypertension- SBP 110's currently - continue to hold home HCTZ # gait instability with mechanical fall -working with PT and OT #dvt prophylaxis: LMWH I have discussed the case with RN - continue PT/OT looking for placement Subjective: denies pain Objective: Vital Signs Temp Pulse Resp BP Pulse Ox 36.7 C 78 18 117/65 94 09/15/17 11:19 09/15/17 11:19 09/15/17 07:59 09/15/17 11:19 09/15/17 11:19 Laboratory Results 09/15/17 04:12 09/15/17 04:12 09/14/17 09/15/17 09/16/17 05:59 05:59 05:59 Intake Total 1420 1130 Output Total 410 1550 275 Balance 1010 -420 -275 PT 13.9 SEC (12.0-15.0) 09/13/17 14:35 INR 1.08 (0.83-1.16) 09/13/17 14:35 - Physical Exam Constitutional: no apparent distress Eyes: anicteric sclera Ears, Nose, Mouth, Throat: moist mucous membranes Cardiovascular: regular rate and rhythym Respiratory: no respiratory distress Gastrointestinal: normoactive bowel sounds Genitourinary: no bladder fullness Skin: warm Musculoskeletal: No asymmetric calves Neurologic: AAOx3 Psychiatric: interacting appropriately Lymph, Heme, Immunologic: no cervical LAD ICD10 Worksheet Patient Problems: Problems Problem Status Onset Hip fracture, left Acute Anemia Acute Frequent falls Acute Generalized weakness Acute Left lower lobe pneumonia Acute Left rib fracture Acute Chronic obstructive lung disease Chronic Hypertension Chronic
--- NOTE | 2017-09-15 15:36 | ASMTCMCOM ---
CM Note CM Note Notes: Pt is accepted at the [facility] inpatient rehabilitation, which is pt #1 choice for d/c placement; updated pt and spouse Soledad [phone]. Informed Soledad of transportation options she is agreeable to paying for a [employer] van transport. CM to follow. Date Signed: 09/15/2017 03:36 PM Electronically Signed By:SUSAN Mcallister
[2017-09-15] MEDS: ACETAMINOPHEN 325 MG TAB PO PRN (17:28)
[2017-09-16 04:47] LABS: HEMATOCRIT 31.2 % (40.0-51.0); HEMOGLOBIN 10.6 g/dL (13.7-17.5); MEAN CELL HEMOGLOBIN 31.8 pg (27.9-34.1); MEAN CELL VOLUME 93.7 fL (81.5-99.8); RED BLOOD CELL COUNT 3.33 10^6/uL (4.40-6.38); RED CELL DISTRIBUTION WIDTH 13.6 % (11.5-15.2)
[2017-09-16 05:02] LABS: ANION GAP 8 mEq/L (8-16); CALCIUM 8.4 mg/dL (8.5-10.4); CARBON DIOXIDE 28 mEq/l (22-31); CHLORIDE 103 mEq/L (97-110); CREATININE 1.1 mg/dL (0.7-1.3); GLOMERULAR FILTRATION RATE > 60; GLUCOSE 91 mg/dL (70-100); POTASSIUM 3.8 mEq/L (3.5-5.2); SODIUM 139 mEq/L (134-144)
[2017-09-16] MEDS: oxyCODONE IR 5 MG TAB PO PRN ×2 (06:16→11:57)
[2017-09-16 07:20] VITALS: BP 119/67; PULSE 71; RESP 16; TEMP 98.2
[2017-09-16 07:57] VITALS: O2SAT 91
[2017-09-16] MEDS: ENOXAPARIN 40 MG/0.4 ML SYR SC SCH (07:57)
[2017-09-16] MEDS: SENNOSIDES/DOCUSATE SODIUM TAB PO SCH (07:57)
[2017-09-16] MEDS: CALCIUM CARBONATE 500 MG TAB PO SCH (07:58)
[2017-09-16] MEDS: CYANO/VITAMIN B12 1000 MCG TAB PO SCH (07:58)
[2017-09-16] MEDS: MULTIVITAMINS 1 EACH TAB PO SCH (07:58)
[2017-09-16] MEDS: CHOLECALCIFEROL VIT D3 1,000 UNITS TAB PO SCH (07:58)
[2017-09-16] MEDS: ACETAMINOPHEN 325 MG TAB PO PRN (07:58)
[2017-09-16] MEDS: GLUCOSAMINE/CHONDROITIN CAP PO SCH (07:58)
[2017-09-16] MEDS: OMEGA-3 FATTY ACIDS 1,000 MG CAP PO SCH (07:58)
[2017-09-16] MEDS: PSYLLIUM PO SCH (07:59)
[2017-09-16] MEDS: PROBIOTIC PO SCH ×2 (07:59→11:58)
[2017-09-16] MEDS: POLYETHYLENE GLYCOL 3350 17 GM PKT PO PRN (07:59)
--- NOTE | 2017-09-16 10:45 | PDIAF ---
- Diagnosis Diagnosis: femur fracture Code Status: Full Code - Medication Management Discharge Medications: Medications to Continue on Transfer Aspirin [Aspirin 81mg (*)] 81 mg PO BID 09/19/11 [Last Taken 09/19/15] Herbals/Supplements -Info Only 1 ea PO DAILY 09/19/15 [Last Taken Unknown] Calcium Carbonate [Oyster Shell Calcium 500 mg (*)] 500 mg PO DAILY 02/01/16 [ Last Taken Unknown] Cholecalciferol Vit D3 [Vitamin D3 (*)] 1,000 units PO DAILY 02/01/16 [Last Taken Unknown] Cyanocobalamin [Vitamin B12 (*)] 1,000 mcg PO DAILY 02/01/16 [Last Taken ] Gabapentin 100 mg PO HS PRN 02/01/16 [Last Taken Unknown] Glucosam/Chondr/Collagn/Hyalur [Glucosamine & Chondroitin Cap] 1 each PO BID 05/11 [Last Taken Unknown] Melatonin [Melatonin 3 MG (*)] 3 mg PO HS PRN 02/01/16 [Last Taken Unknown] Multivitamins [Multivitamin (*)] 1 each PO DAILY 02/01/16 [Last Taken Unknown] [place]-3 Fatty Acids [Fish Oil 1000 mg (*)] 2,000 mg PO DAILY 02/01/16 [Last Taken Unknown] Acetaminophen [Tylenol 325mg (*)] 650 mg PO Q4 PRN #0 tab 02/03/16 [Last Taken Unknown] Cyclobenzaprine [Flexeril 10 MG (*)] 10 mg PO TID PRN 09/13/17 [Last Taken Unknown] Ibuprofen [Motrin (*)] 200 mg PO Q8 PRN 09/13/17 [Last Taken Unknown] Sennosides/Docusate Sodium [Senokot-S] 1 - 2 tab PO BID tab 09/16/17 [Last Taken Unknown] Tears/Dextran 70/Hypromellose [Natural Balance Tears (*)] 1 drop EACHEYE Q2HRS PRN opht.btl 09/16/17 [Last Taken Unknown] oxyCODONE IR [Oxycodone Ir (*)] 2.5 - 5 mg PO Q4 PRN tab 09/16/17 [Last Taken Unknown] Discharge Medications: Refer to the Discharge Home Medication list for PRN reason. - Orders Services needed: Registered Nurse, Physical Therapy, Occupational Therapy Diet Recommendation: no restrictions on diet Diet Texture: Regular Texture Diet - Follow Up Care Current Providers and Referrals: Damaris Hannon MD [Primary Care Provider] - As per Instructions
--- NOTE | 2017-09-16 14:19 | ASMTCMCOM ---
CM Note CM Note Notes: Pt medically stable for d/c to [facility] inpatient rehab. Pt Soledad Cornell will bill, [place] van transport [phone]. ECHO Gordon to call report. Orders to be obtained via [employer]. Date Signed: 09/16/2017 02:18 PM Electronically Signed By:SUSAN Mcallister
--- NOTE | 2017-09-16 14:20 | ASDISCHSUM ---
Discharge Information Plan Status:Inpatient Rehab Medically Cleared to Leave: Discharge Date:09/16/2017 02:04 PM D/C Disposition:[facility] Acute ADT D/C Disposition:[facility] IP Projected Discharge Date:09/16/2017 11:00 AM Transportation at D/C:Wheelchair Van Discharge Delay Reason: Follow-Up Date:09/16/2017 11:00 AM Discharge Slot: Final Diagnosis: Placement Information Referral Type:Rehabilitation Hospital Referral ID:[id number] Provider Name:[facility] Inpatient Rehab Address 1:[address] Phone Number: Address 2: Fax Number: [facility]:[place] Selection Factors: State:[place] Referral Type:*Care Home/SNF Referral ID:[id number] Provider Name: Address 1: Phone Number: Address 2: Fax Number: City: Selection Factors: State: Patient Contact Information Contact Name:SAMANTHA Relationship: Address:[address] City:[place] Alternate Phone: State/Zip Code:[place] [address] Email: Financial Information Financial Class: Primary Plan Desc:MEDICARE INPATIENT Primary Plan Number:[id number] Secondary Plan Desc: Secondary Plan Number: Assessment Information [facility] CM Progress Note CM Note CM Note Notes: Patient admitted after a L femoral neck fracture. He is POD #1 ORIF. Patient is normally active, independent, and relatively healthy. He lives with his Soledad who is MDPOA. Patient's discharge needs are TBD pending PT/OT evals and recommendations. CM will follow. Date Signed: 09/14/2017 09:17 AM Electronically Signed By:Angelica Brown RN [facility] CM Progress Note CM Note CM Note Notes: Pt is accepted at the [facility] inpatient rehabilitation, which is pt #1 choice for d/c placement; updated pt and spouse Soledad [phone]. Informed Soledad of transportation options she is agreeable to paying for a [employer] van transport. CM to follow. Date Signed: 09/15/2017 03:36 PM Electronically Signed By:SUSAN Mcallister [facility] CM Progress Note CM Note CM Note Notes: Pt medically stable for d/c to [facility] inpatient rehab. Pt Soledad Cornell topher badillo, [employer] van transport [phone]. ECHO Gordon to call report. Orders to be obtained via [employer]. Date Signed: 09/16/2017 02:18 PM Electronically Signed By:SUSAN Mcallister Intervention Information Intervention Type:*IM-Signed Date of Service:09/16/2017 11:32 AM Patient Type:Inpatient Staff Member:Brandi Haas Hours: Discipline: Severity: Comment:
--- NOTE | 2017-09-17 02:49 | GDS ---
[f rep st] DISCHARGE SUMMARY DISCHARGE DIAGNOSES: Include: 1. Acute left femoral fracture status post reduction and fixation. 2. Chronic kidney disease. 3. Hypertension. 4. Gait instability with mechanical fall. HISTORY OF PRESENT ILLNESS: An 87-year-old male, who presents with acute left femoral neck fracture requiring surgical intervention. For details of patient's initial presentation, please see the histo ry and physical dated 09/13/2017. Consultative services include orthopedic surgery. PROCEDURES: On 09/13/2017 patient underwent left femoral neck fixation. HOSPITAL COURSE: Issue: 1. Acute left femoral fracture. Patient was intraoperatively repaired and received PT, OT. On the day of disposition, patient was working with PT, OT, had pain adequately controlled, and is ready for transition to inpatient rehabilitation. The patient will be continued on p.r.n. oral medicines for pain control. 2. Acute hypoxic respiratory failure. This is presumed secondary to atelectasis and poor airway rec ruitment. The patient has been weaned down to 1 L of oxygen on the day of disposition. We recommend to continue working with incentive spirometry and body positioning to assist with the patient and be tter pulmonary toilet. 3. CKD. Patient's creatinine is 1.1. On the day of disposition, he is taking good p.o. and stable on his home medications. MEDICATIONS: At the time of disposition, please reference med rec printed on 09/16/2017. The patien t is being discharged to inpatient rehabilitation in stable status able to participate with PT, OT. PENDING STUDIES: At the time of this dictation are none. TIME SPENT: I spent greater than 30 minutes in the planning and coordination of this discharge. /[id number]/MODL
== END 2017-09-16 14:04 | DRG 481 ==
LOC: F3N 20:25
PROVIDERS: ADMIT Internal Medicine; ATTEND Hospitalist
PROC: 0QH734Z Insertion of Internal Fixation Device into Left Upper Femur, Percutaneous Approach (ICD-10-PCS; principal; 2017-09-13 18:00)
DX: S72.002A Fracture of unspecified part of neck of left femur, initial encounter for closed fracture (principal); W01.0XXA Fall on same level from slipping, tripping and stumbling without subsequent striking against object, initial encounter; Y92.830 Public park as the place of occurrence of the external cause; Y93.K1 Activity, walking an animal; J96.10 Chronic respiratory failure, unspecified whether with hypoxia or hypercapnia; I12.9 Hypertensive chronic kidney disease with stage 1 through stage 4 chronic kidney disease, or unspecified chronic kidney disease; N18.3 Chronic kidney disease, stage 3 (moderate); H57.11 Ocular pain, right eye; M10.9 Gout, unspecified; R26.9 Unspecified abnormalities of gait and mobility; I44.7 Left bundle-branch block, unspecified; Z87.891 Personal history of nicotine dependence; Z91.81 History of falling; Z79.82 Long term (current) use of aspirin; Z79.52 Long term (current) use of systemic steroids; Z98.1 Arthrodesis status; Z23 Encounter for immunization
CPT/HCPCS: 96374; 97110-GP; 97116-GP; 97161-GP; 97165-GO; 97530-GP; 97535-GO; C1713; C1769; G0008; G0009; G8978-GP-CK; G8979-GP-CJ; G8987-GO-CL; G8988-GO-CJ; J0690; J1170; J1650; J2370; J2405; J2704; J3010

== ENCOUNTER 2017-09-16 14:15 | Inpatient (IN) | payer OTHER ==
[2017-09-16] MEDS ORDERED: GABAPENTIN 100 MG PO PRN (15:36)
[2017-09-16] MEDS ORDERED: MELATONIN 3 MG TAB PO PRN (15:36)
[2017-09-16] MEDS ORDERED: TEARS/DEXTRAN 70/HYPROMELLOSE 15 ML OPHT.BTL EACHEYE PRN (15:36)
[2017-09-16] MEDS ORDERED: BISACODYL 10 MG SUPP PR PRN (15:41)
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
[2017-09-16] MEDS: SENNOSIDES/DOCUSATE SODIUM TAB PO SCH (20:29)
[2017-09-16] MEDS: oxyCODONE IR 5 MG TAB PO PRN (20:29)
[2017-09-16] MEDS: GLUCOSAMINE SULF 500 MG CAP PO SCH (20:30)
[2017-09-16] MEDS: ASPIRIN 81 MG CHEWABLE TAB PO SCH (20:30)
[2017-09-16] MEDS ORDERED: NON-FORMULARY NEW DRUG (Glucosam/Chondr/Collagn/Hyalur [Glucosamine & Chondroitin Cap] 1 E PO SCH (21:00)
[2017-09-17] MEDS: oxyCODONE IR 5 MG TAB PO PRN ×2 (06:09→20:11)
[2017-09-17] MEDS: GLUCOSAMINE SULF 500 MG CAP PO SCH ×2 (08:30→20:10)
[2017-09-17] MEDS: OMEGA-3 FATTY ACIDS 1,000 MG CAP PO SCH (08:30)
[2017-09-17] MEDS: ASPIRIN 81 MG CHEWABLE TAB PO SCH ×2 (08:30→20:10)
[2017-09-17] MEDS: CALCIUM CARBONATE 500 MG TAB PO SCH (08:30)
[2017-09-17] MEDS: SENNOSIDES/DOCUSATE SODIUM TAB PO SCH ×2 (08:30→20:12)
[2017-09-17] MEDS: CYANO/VITAMIN B12 1000 MCG TAB PO SCH (08:30)
[2017-09-17] MEDS: MULTIVITAMINS 1 EACH TAB PO SCH (08:30)
[2017-09-17] MEDS: CHOLECALCIFEROL VIT D3 1,000 UNITS TAB PO SCH (08:30)
[2017-09-17] MEDS: [UNRECOGNIZED DRUG - OTHER] PO SCH (08:34)
[2017-09-17] MEDS ORDERED: Herbals/Supplements -Info Only PO SCH (09:00)
[2017-09-17] MEDS ORDERED: NON-FORMULARY NEW DRUG PO SCH (09:00)
--- NOTE | 2017-09-17 10:52 | PDOREHIP ---
Admission [facility] - Admission - 3 Day Assessment Period Admission Date/Day 1: 09/16/17 Day 2: 09/17/17 Day 3: 09/18/17 - Active Diagnoses Comorbidities and Co-existing Conditions at Admission: 99334. None of the Above - Skin Conditions Unhealed Pressure Ulcer (1 or more/Stage 1 or >)-Admission: 0. No
--- NOTE | 2017-09-17 10:58 | SOAPPROG ---
SOAP Progress Note Assessment/Plan: Assessment: 87-year-old man status post ground level fall and left hip fracture on 2016, treated the same day with percutaneous pinning. Debility status post hip fracture and operative repair. * PT and OT to optimize mobility and activities of daily living. Hypoxia and history of unspecified chronic lung disease. Possible COPD with remote smoking history. * Continue incentive spirometry. * Consider bronchodilator however he has a normal lung exam without wheezes or prolonged expiratory phase. Pain management appears to be adequate with p.r.n. oxycodone. Has not used p.r.n. acetaminophen. Postsurgical anemia. Recheck CBC. Insomnia. He does not believe melatonin has been effective in the past so will discontinue. He does not want other pharmacotherapy at present. History of gout. Reports some residual left ankle tenderness. * Continue his herbal supplement. Monitor for signs or symptoms of recurrence. Chronic kidney disease, stage III. Doing well with no worsening noted during his hospitalization. Possible osteoporosis with femoral neck fracture resulting from ground level fall. * Advise DEXA scan after discharge. Continue calcium and vitamin-D supplementation. Prophylaxis. He is at elevated risk for DVT. * Resume enoxaparin until his mobility improves. 09/17/17 10:58 Subjective: Had interrupted sleep last night but feels adequately rested. He reports melatonin does not work and he says he decline the last night. Fell asleep after receiving oxycodone at about 8:00 p.m. and then he says he awoke at about 2 in the morning but was subsequently eventually able to retain sleep. Pain was not interfering with sleep. He denies cough, dyspnea, fevers, chills. Objective: Vital Signs Temp Pulse Resp BP Pulse Ox 36.9 C 56 L 16 99/57 L 93 09/17/17 05:10 09/17/17 05:10 09/17/17 05:10 09/17/17 05:10 09/17/17 05:10 09/16/17 09/17/17 09/18/17 05:59 05:59 05:59 Intake Total 250 Output Total 250 Balance 0 Physical Exam - Physical Exam General Appearance: WD/WN, alert, no apparent distress Respiratory: normal breath sounds, No crackles, No rhonchi, No wheezing Cardiac/Chest: regular rate, rhythm, No edema Skin: normal color, warm/dry, other (Left hip incision clean and dry and intact. Scant bloody drainage on dressing.) Extremities: other (Mild tenderness at left ankle.), No calf tenderness Neuro/Psych: no motor/sensory deficits, alert, normal mood/affect, oriented x 3 , other (Poor judgment regarding safety. Attempts to arise from wheelchair without locking breaks, reaches for bedside table for support. Reminded regarding breaks and provided his walker for him to arise from seated to inspect incision.) ICD10 Worksheet Patient Problems: Problems Problem Status Onset Anemia Acute Frequent falls Acute Generalized weakness Acute Hip fracture, left Acute Left lower lobe pneumonia Acute Left rib fracture Acute Chronic obstructive lung disease Chronic Hypertension Chronic
[2017-09-17] MEDS: ENOXAPARIN 40 MG/0.4 ML SYR SC SCH (12:05)
[2017-09-17 13:11] LABS: % IMMATURE GRANULYOCYTES 0.1 % (0.0-1.1); ABSOLUTE IMMATURE GRANULOCYTES 0.01 10^3/uL (0.00-0.10); ADD DIFF? NO; ADD MORPH? NO; ADD SCAN? NO; ATYPICAL LYMPHOCYTE FLAG 10 (0-99); FRAGMENT RBC FLAG 0 (0-99); HEMATOCRIT 39.2 % (40.0-51.0); LEFT SHIFT FLG 0 (0-99); LIPEMIA HEMOLYSIS FLAG 80 (0-99); MEAN CELL HEMOGLOBIN 31.4 pg (27.9-34.1); MEAN CELL HEMOGLOBIN CONCENTR. 33.2 g/dL (32.4-36.7); MEAN CELL VOLUME 94.7 fL (81.5-99.8); MEAN PLATELET VOLUME 9.6 fL (8.7-11.7); PLATELET CLUMPS FLAG 10 (0-99); PLATELET COUNT 136 10^3/uL (150-400); RED BLOOD CELL COUNT 4.14 10^6/uL (4.40-6.38); RED CELL DISTRIBUTION WIDTH 13.6 % (11.5-15.2)
[2017-09-17] MEDS: ACETAMINOPHEN 325 MG TAB PO PRN (20:38)
[2017-09-18] MEDS: oxyCODONE IR 5 MG TAB PO PRN ×4 (01:30→23:55)
[2017-09-18] MEDS: ACETAMINOPHEN 325 MG TAB PO PRN ×3 (04:23→21:09)
[2017-09-18] MEDS: GLUCOSAMINE SULF 500 MG CAP PO SCH ×2 (08:22→19:48)
[2017-09-18] MEDS: OMEGA-3 FATTY ACIDS 1,000 MG CAP PO SCH (08:22)
[2017-09-18] MEDS: SENNOSIDES/DOCUSATE SODIUM TAB PO SCH ×2 (08:22→19:51)
[2017-09-18] MEDS: MULTIVITAMINS 1 EACH TAB PO SCH (08:22)
[2017-09-18] MEDS: CYANO/VITAMIN B12 1000 MCG TAB PO SCH (08:23)
[2017-09-18] MEDS: ASPIRIN 81 MG CHEWABLE TAB PO SCH ×2 (08:23→19:47)
[2017-09-18] MEDS: CALCIUM CARBONATE 500 MG TAB PO SCH (08:23)
[2017-09-18] MEDS: ENOXAPARIN 40 MG/0.4 ML SYR SC SCH (08:23)
[2017-09-18] MEDS: [UNRECOGNIZED DRUG - OTHER] PO SCH (08:24)
[2017-09-18] MEDS: CHOLECALCIFEROL VIT D3 1,000 UNITS TAB PO SCH (08:26)
--- NOTE | 2017-09-18 08:28 | SOAPPROG ---
SOAP Progress Note Assessment/Plan: Assessment: 87-year-old man status post ground level fall and left hip fracture on 2016, treated the same day with percutaneous pinning. # Debility status post hip fracture and operative repair. * PT and OT to optimize mobility and activities of daily living. # Hypoxia and history of unspecified chronic lung disease. Possible COPD with remote smoking history. * Continue incentive spirometry. * Consider bronchodilator however he has a normal lung exam without wheezes or prolonged expiratory phase. * Titrate O2 to keep sats >89%. # Pain management appears to be adequate with p.r.n. oxycodone. Has not used p.r.n. acetaminophen. # Thrombocytopenia - Recheck CBC # Postsurgical anemia. Recheck CBC. # Insomnia. He does not believe melatonin has been effective in the past so will discontinue. He does not want other pharmacotherapy at present. # History of gout. Reports some residual left ankle tenderness. - Stable without recurrence * Continue his herbal supplement. Monitor for signs or symptoms of recurrence. # Chronic kidney disease, stage III. Doing well with no worsening noted during his hospitalization. # Possible osteoporosis with femoral neck fracture resulting from ground level fall. * Advise DEXA scan after discharge. Continue calcium and vitamin-D supplementation. # Prophylaxis. He is at elevated risk for DVT. * Resume enoxaparin until his mobility improves. 09/18/17 08:28 Subjective: Feeling good this morning. Some pain intermittently especially when trying to turn in bed but not enough to warrant medication changes or other. Discussion about his O2 needs -has been recommended for home use for past 2-3 yrs but doesn 't want to do it. No associated SOB, CP, or wheezing. Having bm's Objective: Vital Signs Temp Pulse Resp BP Pulse Ox 36.8 C 67 20 112/65 95 09/17/17 18:31 09/17/17 22:00 09/17/17 18:31 09/17/17 18:31 09/17/17 22:00 Laboratory Results 09/17/17 Unknown 09/17/17 09/18/17 09/19/17 05:59 05:59 05:59 Intake Total 250 1286 Output Total 250 825 Balance 0 461 Physical Exam - Physical Exam General Appearance: alert, no apparent distress, other (Propulsing WC down hallway with support of PT) EENT: PERRL/EOMI Respiratory: lungs clear, normal breath sounds Cardiac/Chest: regular rate, rhythm Abdomen: normal bowel sounds, non-tender Extremities: swelling (Increased swelling on the left compared to right- unchanged per documentation, likely a result of recent fracture/surgery. no JOSEPHINE' s on during exam) Neuro/Psych: alert, normal mood/affect ICD10 Worksheet Patient Problems: Problems Problem Status Onset Anemia Acute Frequent falls Acute Generalized weakness Acute Hip fracture, left Acute Left lower lobe pneumonia Acute Left rib fracture Acute Chronic obstructive lung disease Chronic Hypertension Chronic
[2017-09-19] MEDS: oxyCODONE IR 5 MG TAB PO PRN ×4 (04:12→19:22)
--- NOTE | 2017-09-19 08:06 | SOAPPROG ---
SOAP Progress Note Assessment/Plan: 87-year-old man status post ground level fall and left hip fracture on 2016, treated the same day with percutaneous pinning. # Debility status post hip fracture and operative repair. * PT and OT to optimize mobility and activities of daily living. Pt requiring ModA for LE dressing. still only able to complete hygiene tasks from a seated level. Walking around 35 ft but with CGA/assistive device and takes several minutes. started with 4inch step today (has two to enter the home) and required ARAM. # Hypoxia and history of unspecified chronic lung disease. Possible COPD with remote smoking history. * Continue incentive spirometry. * Consider bronchodilator however he has a normal lung exam without wheezes or prolonged expiratory phase. * Titrate O2 to keep sats >89%. # Pain management- encouraging patient to use meds. Has PRN tylenol/oxycodone. Will add PRN ICE for muscle cramping # Thrombocytopenia - Awaiting recheck # Postsurgical anemia. Awaiting recheck. # Insomnia. He does not believe melatonin has been effective in the past so will discontinue. Consider small dose of trazodone prn # History of gout. Reports some residual left ankle tenderness. - Stable without recurrence * Continue his herbal supplement. Monitor for signs or symptoms of recurrence. # Chronic kidney disease, stage III. Doing well with no worsening noted during his hospitalization. # Possible osteoporosis with femoral neck fracture resulting from ground level fall. * Advise DEXA scan after discharge. Continue calcium and vitamin-D supplementation. # Prophylaxis. He is at elevated risk for DVT. * Resume enoxaparin until his mobility improves. Good discussion - pt understands the benefit of receiving ongoing therapy for both safety and also return to mobility. His overall pain has been controlled although noticing more "charley-horse" type feeling in the muscles. Pt not sleeping great - secondary to discomfort. Will add ICE for muscle cramping and also prn trazodone to aide in sleep. Has remained continent of bowel/bladder and having regular movements Attended staffing, 15 minutes. Discussed with case management, dietitian, nursing, PT, OT. 09/19/17 10:33 Subjective: Doing pretty well - tolerating more activity than even just a couple of days ago. Noticing that the muscles are pretty sore around the incision/break area. No fevers/chills, no lightheadedness. Medications are providing some relief but trying to minimize intake Objective: Vital Signs Temp Pulse Resp BP Pulse Ox 36.8 C 69 16 116/60 94 09/18/17 19:40 09/18/17 19:40 09/18/17 19:40 09/18/17 19:40 09/18/17 22:28 Laboratory Results 09/17/17 Unknown 09/18/17 09/19/17 09/20/17 05:59 05:59 05:59 Intake Total 1286 1860 Output Total 825 645 Balance 461 1215 - Time Spent With Patient Time Spent With Patient: Greater than 35 minutes floor time today, including more than 50% of time in coordination of care during staffing meeting and counseling patient.. Physical Exam - Physical Exam General Appearance: alert, other (At rest sitting in his chair appears comfortable - when tyring to manuver grunting and showing evidence of discomfort ) Respiratory: lungs clear Cardiac/Chest: normal peripheral pulses (Specifically on the right foot - Faint but equal bilaterally ), regular rate, rhythm Abdomen: normal bowel sounds Skin: other (Large area of bruising over the left lateral thigh- not firm to touch, no warmth associated. Inicision covered - bandage without evidence of drainage) Neuro/Psych: alert, normal mood/affect ICD10 Worksheet Patient Problems: Problems Problem Status Onset Anemia Acute Frequent falls Acute Generalized weakness Acute Hip fracture, left Acute Left lower lobe pneumonia Acute Left rib fracture Acute Chronic obstructive lung disease Chronic Hypertension Chronic
[2017-09-19] MEDS: MULTIVITAMINS 1 EACH TAB PO SCH (09:35)
[2017-09-19] MEDS: GLUCOSAMINE SULF 500 MG CAP PO SCH ×2 (09:35→21:15)
[2017-09-19] MEDS: OMEGA-3 FATTY ACIDS 1,000 MG CAP PO SCH (09:35)
[2017-09-19] MEDS: CYANO/VITAMIN B12 1000 MCG TAB PO SCH (09:36)
[2017-09-19] MEDS: ENOXAPARIN 40 MG/0.4 ML SYR SC SCH (09:36)
[2017-09-19] MEDS: CHOLECALCIFEROL VIT D3 1,000 UNITS TAB PO SCH (09:36)
[2017-09-19] MEDS: CALCIUM CARBONATE 500 MG TAB PO SCH (09:36)
[2017-09-19] MEDS: SENNOSIDES/DOCUSATE SODIUM TAB PO SCH ×2 (09:36→21:15)
[2017-09-19] MEDS: ASPIRIN 81 MG CHEWABLE TAB PO SCH ×2 (10:31→21:16)
[2017-09-19] MEDS: [UNRECOGNIZED DRUG - OTHER] PO SCH (10:32)
[2017-09-19] MEDS ORDERED: traZODone 50 MG TAB PO PRN (10:48)
[2017-09-19 12:57] LABS: HEMATOCRIT 33.6 % (40.0-51.0); MEAN CELL HEMOGLOBIN 31.1 pg (27.9-34.1); MEAN CELL HEMOGLOBIN CONCENTR. 32.7 g/dL (32.4-36.7); MEAN CELL VOLUME 94.9 fL (81.5-99.8); RED BLOOD CELL COUNT 3.54 10^6/uL (4.40-6.38); RED CELL DISTRIBUTION WIDTH 13.4 % (11.5-15.2)
[2017-09-19] MEDS: ACETAMINOPHEN 325 MG TAB PO PRN (14:28)
[2017-09-20] MEDS: ACETAMINOPHEN 325 MG TAB PO PRN ×2 (08:02→14:17)
--- NOTE | 2017-09-20 08:25 | SOAPPROG ---
SOAP Progress Note Assessment/Plan: 87-year-old man status post ground level fall and left hip fracture on 2016, treated the same day with percutaneous pinning. # Debility status post hip fracture and operative repair. * PT and OT to optimize mobility and activities of daily living. Pt requiring ModA for LE dressing. still only able to complete hygiene tasks from a seated level. Walking around 35 ft but with CGA/assistive device and takes several minutes. started with 4inch step today (has two to enter the home) and required ARAM. # Hypoxia and history of unspecified chronic lung disease. Possible COPD with remote smoking history. * Continue incentive spirometry. * Consider bronchodilator however he has a normal lung exam without wheezes or prolonged expiratory phase. * Titrate O2 to keep sats >89%- Pt has been on RA and maintain sats well # Pain management- encouraging patient to use meds. Has PRN tylenol/oxycodone/ Ice # Thrombocytopenia - Resolved on recheck # Postsurgical anemia. drop - will recheck/trend # Insomnia. He does not believe melatonin has been effective in the past so will discontinue. Consider small dose of trazodone prn # History of gout. Reports some residual left ankle tenderness. - Stable without recurrence * Continue his herbal supplement. Monitor for signs or symptoms of recurrence. # Chronic kidney disease, stage III. Doing well with no worsening noted during his hospitalization. # Possible osteoporosis with femoral neck fracture resulting from ground level fall. * Advise DEXA scan after discharge. Continue calcium and vitamin-D supplementation. # Prophylaxis. He is at elevated risk for DVT. * Resume enoxaparin until his mobility improves. Overall had a pretty rough night as a result of difficulty with defecation - was able to achieve large BM's and feels better that way. Has been increasing his fluid intake significantly per RN report to help prevent dehydration and also to help with BM's. Did have a 2 point drop in Hgb - no associated symptoms. Exam appears stable with regards to LLE - potentially a combo of post -operative change plus some dilution? NO other evidence of bleeding - will recheck h/h to assure not continue to drop - has continues on Lovenox for prevention so at slightly increased risk for bleed. Pt would like to continue with prune juice for management of his bowels and prns for now. 09/20/17 08:21 Subjective: Reports little sleep - up for bm's after suppository - No new pain, no lightheadedness/dizziness. reports that did feel a little "out of it" but was after taking his oxycodone and after waking up several times through the night. Feels back with it this morning. Objective: Vital Signs Temp Pulse Resp BP Pulse Ox 36.7 C 70 18 124/67 H 91 L 09/20/17 08:00 09/20/17 08:00 09/20/17 08:00 09/20/17 08:00 09/20/17 08:00 Laboratory Results 09/19/17 11:30 09/19/17 09/20/17 09/21/17 05:59 05:59 05:59 Intake Total 1860 1475 Output Total 645 801 Balance 1215 674 Physical Exam - Physical Exam General Appearance: alert, no apparent distress, other (Working with OT on dressing management.) EENT: PERRL/EOMI Respiratory: lungs clear, normal breath sounds Cardiac/Chest: regular rate, rhythm Abdomen: normal bowel sounds, non-tender, soft Skin: other (No new changes to L hip/thigh region - not warm to touch over area of bruising - still without induration or fluctuance. doesn't feel more firm to touch. Some pain but unchanged ) Neuro/Psych: alert, normal mood/affect, oriented x 3 ICD10 Worksheet Patient Problems: Problems Problem Status Onset Anemia Acute Frequent falls Acute Generalized weakness Acute Hip fracture, left Acute Left lower lobe pneumonia Acute Left rib fracture Acute Chronic obstructive lung disease Chronic Hypertension Chronic
[2017-09-20] MEDS: CYANO/VITAMIN B12 1000 MCG TAB PO SCH (08:54)
[2017-09-20] MEDS: CHOLECALCIFEROL VIT D3 1,000 UNITS TAB PO SCH (08:55)
[2017-09-20] MEDS: GLUCOSAMINE SULF 500 MG CAP PO SCH ×2 (08:55→20:21)
[2017-09-20] MEDS: ASPIRIN 81 MG CHEWABLE TAB PO SCH ×2 (08:55→20:21)
[2017-09-20] MEDS: MULTIVITAMINS 1 EACH TAB PO SCH (08:55)
[2017-09-20] MEDS: OMEGA-3 FATTY ACIDS 1,000 MG CAP PO SCH (08:55)
[2017-09-20] MEDS: CALCIUM CARBONATE 500 MG TAB PO SCH (08:55)
[2017-09-20] MEDS: ENOXAPARIN 40 MG/0.4 ML SYR SC SCH (08:57)
[2017-09-20] MEDS: [UNRECOGNIZED DRUG - OTHER] PO SCH (08:57)
[2017-09-20] MEDS: SENNOSIDES/DOCUSATE SODIUM TAB PO SCH ×2 (09:14→20:21)
[2017-09-20 12:54] LABS: HEMATOCRIT 34.7 % (40.0-51.0); HEMOGLOBIN 11.7 g/dL (13.7-17.5)
[2017-09-20] MEDS: oxyCODONE IR 5 MG TAB PO PRN (14:16)
[2017-09-21] MEDS: GABAPENTIN 100 MG CAP PO PRN (01:53)
[2017-09-21] MEDS: oxyCODONE IR 5 MG TAB PO PRN ×5 (01:53→21:04)
[2017-09-21 08:03] LABS: HEMATOCRIT 31.1 % (40.0-51.0); HEMOGLOBIN 10.3 g/dL (13.7-17.5)
[2017-09-21] MEDS: OMEGA-3 FATTY ACIDS 1,000 MG CAP PO SCH (08:46)
[2017-09-21] MEDS: GLUCOSAMINE SULF 500 MG CAP PO SCH ×2 (08:46→21:05)
[2017-09-21] MEDS: ASPIRIN 81 MG CHEWABLE TAB PO SCH ×2 (08:47→21:05)
[2017-09-21] MEDS: CALCIUM CARBONATE 500 MG TAB PO SCH (08:47)
[2017-09-21] MEDS: MULTIVITAMINS 1 EACH TAB PO SCH (08:47)
[2017-09-21] MEDS: SENNOSIDES/DOCUSATE SODIUM TAB PO SCH ×2 (08:47→21:05)
[2017-09-21] MEDS: CYANO/VITAMIN B12 1000 MCG TAB PO SCH (08:47)
[2017-09-21] MEDS: ENOXAPARIN 40 MG/0.4 ML SYR SC SCH (08:49)
[2017-09-21] MEDS: CHOLECALCIFEROL VIT D3 1,000 UNITS TAB PO SCH (08:49)
[2017-09-21] MEDS: [UNRECOGNIZED DRUG - OTHER] PO SCH (08:53)
--- NOTE | 2017-09-21 09:06 | SOAPPROG ---
SOAP Progress Note Assessment/Plan: 87-year-old man status post ground level fall and left hip fracture on 2016, treated the same day with percutaneous pinning. # Debility status post hip fracture and operative repair. * PT and OT to optimize mobility and activities of daily living. Pt requiring ModA for LE dressing. still only able to complete hygiene tasks from a seated level. Walking around 35 ft but with CGA/assistive device and takes several minutes. started with stairs (has two to enter the home) and required ARAM. # Hypoxia and history of unspecified chronic lung disease. Possible COPD with remote smoking history. * Continue incentive spirometry. * Consider bronchodilator however he has a normal lung exam without wheezes or prolonged expiratory phase. * Titrate O2 to keep sats >89%- Pt has been on RA and maintain sats well # Pain management- encouraging patient to use meds. Has PRN tylenol/oxycodone/ Ice # Thrombocytopenia - Resolved on recheck # Postsurgical anemia. Pt with variable lab results - will continue to trend - appears stable without obvious evidence of bleeding. Thigh measurements consistent # Insomnia. He does not believe melatonin has been effective in the past so will discontinue. Consider small dose of trazodone prn # History of gout. Reports some residual left ankle tenderness. - Stable without recurrence * Continue his herbal supplement. Monitor for signs or symptoms of recurrence. # Chronic kidney disease, stage III. Doing well with no worsening noted during his hospitalization. # Possible osteoporosis with femoral neck fracture resulting from ground level fall. * Advise DEXA scan after discharge. Continue calcium and vitamin-D supplementation. # Prophylaxis. He is at elevated risk for DVT. * Continue Lovenox until mobility improves Didn't sleep too well again - he reports he was mildly uncomfortable but mostly his mind was racing. We talked about his medications and reported he felt that the trazodone was somewhat effective last night and doesn't feel a "hang-over" this morning. Will increase to 50mg tonight. He doesn't have any symptoms consistent with bleeding although slight drop again in H/H. Leg measurements have remained stable. Will trend again in the morning. Will continue current AC management for now - low threshold to hold if has symptoms or ongoing h/h drop - May need replacement supplements such as Iron to help anemia. Continue to monitor closely for now 09/21/17 09:00 Subjective: Feeling a little better this morning - although didn't have a "great" night sleep had about 4hr consecutive which was much better than the night prior. no dizziness/lightheadedness. No increase in pain in the leg - no new numbness of the left leg. Did have 2 smaller Bm's yesterday. no fevers/chills Objective: Vital Signs Temp Pulse Resp BP Pulse Ox 36.5 C 67 16 127/83 H 91 L 09/20/17 19:24 09/20/17 19:24 09/20/17 19:24 09/20/17 19:24 09/21/17 06:08 Laboratory Results 09/21/17 06:00 09/20/17 09/21/17 09/22/17 05:59 05:59 05:59 Intake Total 1475 150 Output Total 801 1200 Balance 674 -1050 Physical Exam - Physical Exam General Appearance: alert, no apparent distress, other (while seated appears pretty comfortable - with movement definitely with discomfort) EENT: PERRL/EOMI Respiratory: chest non-tender, lungs clear Cardiac/Chest: regular rate, rhythm Abdomen: normal bowel sounds, non-tender, soft Extremities: other (Still with significant bruising over the left lateral leg - not warm to touch, not indurated or firm with palpation. Some pain over certain parts of the thigh although unchanged from prior exams. ) Neuro/Psych: alert, normal mood/affect, oriented x 3 ICD10 Worksheet Patient Problems: Problems Problem Status Onset Anemia Acute Frequent falls Acute Generalized weakness Acute Hip fracture, left Acute Left lower lobe pneumonia Acute Left rib fracture Acute Chronic obstructive lung disease Chronic Hypertension Chronic
[2017-09-21] MEDS: traZODone 50 MG TAB PO PRN (21:04)
[2017-09-22] MEDS: oxyCODONE IR 5 MG TAB PO PRN (03:05)
[2017-09-22] MEDS: [UNRECOGNIZED DRUG - OTHER] PO SCH (08:55)
[2017-09-22] MEDS: OMEGA-3 FATTY ACIDS 1,000 MG CAP PO SCH (08:56)
[2017-09-22] MEDS: MULTIVITAMINS 1 EACH TAB PO SCH (08:56)
[2017-09-22] MEDS: SENNOSIDES/DOCUSATE SODIUM TAB PO SCH ×2 (08:56→20:52)
[2017-09-22] MEDS: CHOLECALCIFEROL VIT D3 1,000 UNITS TAB PO SCH (08:56)
[2017-09-22] MEDS: ASPIRIN 81 MG CHEWABLE TAB PO SCH (08:56)
[2017-09-22] MEDS: ACETAMINOPHEN 325 MG TAB PO PRN ×3 (08:56→23:41)
[2017-09-22] MEDS: ENOXAPARIN 40 MG/0.4 ML SYR SC SCH (08:56)
[2017-09-22] MEDS: GLUCOSAMINE SULF 500 MG CAP PO SCH ×2 (08:56→20:52)
[2017-09-22] MEDS: CYANO/VITAMIN B12 1000 MCG TAB PO SCH (08:56)
[2017-09-22] MEDS: CALCIUM CARBONATE 500 MG TAB PO SCH (08:56)
--- NOTE | 2017-09-22 10:55 | SOAPPROG ---
SOAP Progress Note Assessment/Plan: Assessment: 87-year-old man status post ground level fall and left hip fracture on 2016, treated the same day with percutaneous pinning. Debility status post hip fracture and operative repair. * Initial functional independence measure 86 on 09/19/2017. Pt requiring ModA for LE dressing. still only able to complete hygiene tasks from a seated level. Walking around 35 ft but with CGA/assistive device and takes several minutes. Started with 4inch step on 09/19/17 (has two to enter the home) and required ARAM. * Continue PT and OT to optimize mobility and activities of daily living. Hypoxia and history of unspecified chronic lung disease. Possible COPD with remote smoking history. * Hypoxia resolved * Continue incentive spirometry. Pain management appears to be adequate with p.r.n. oxycodone. Postsurgical anemia. Recheck CBC, reticulocytes, iron panel 09/23/17. CAD: LBBB on EKG; Myocardial perfusion scan 03/21/2015 with inferior infarct, inferior hypokinesis, EF 59%. * Continue aspirin but no need for twice daily. Changed to 81 mg p.o. q.day on 09/22/2017. Insomnia. Responding to trazodone. History of gout. Reports some residual left ankle tenderness. * Continue his herbal supplement. Monitor for signs or symptoms of recurrence. Chronic kidney disease, stage III. Doing well with no worsening noted during his hospitalization. Possible osteoporosis with femoral neck fracture resulting from ground level fall. * Advise DEXA scan after discharge. Continue calcium and vitamin-D supplementation. Prophylaxis. He is at elevated risk for DVT. * Resume enoxaparin until his mobility improves. Discharge home with planned for 09/26/2017. 09/22/17 12:21 Subjective: No complaints this morning. Has left hip pain only when he moves. Overall adequately controlled. Denies cough, dyspnea, fevers, chills. Objective: Vital Signs Temp Pulse Resp BP Pulse Ox 36.8 C 66 18 129/82 H 92 09/22/17 06:46 09/22/17 06:46 09/22/17 06:46 09/22/17 06:46 09/22/17 06:46 Laboratory Results 09/21/17 06:00 09/21/17 09/22/17 09/23/17 05:59 05:59 05:59 Intake Total 150 1150 Output Total 9993 3136 Balance -1050 -175 Physical Exam - Physical Exam General Appearance: WD/WN, alert, no apparent distress, obese Respiratory: normal breath sounds, No crackles, No rhonchi, No wheezing Cardiac/Chest: regular rate, rhythm, No diastolic murmur, No systolic murmur Skin: normal color, warm/dry Neuro/Psych: no motor/sensory deficits, alert, normal mood/affect, oriented x 3 ICD10 Worksheet Patient Problems: Problems Problem Status Onset Anemia Acute Frequent falls Acute Generalized weakness Acute Hip fracture, left Acute Left lower lobe pneumonia Acute Left rib fracture Acute Chronic obstructive lung disease Chronic Hypertension Chronic
[2017-09-22] MEDS: traZODone 50 MG TAB PO PRN (22:27)
[2017-09-23] MEDS: oxyCODONE IR 5 MG TAB PO PRN (04:02)
[2017-09-23] MEDS: GABAPENTIN 100 MG CAP PO PRN (04:02)
[2017-09-23 08:28] LABS: % IMMATURE GRANULYOCYTES 0.4 % (0.0-1.1); ABSOLUTE IMMATURE GRANULOCYTES 0.04 10^3/uL (0.00-0.10); ADD DIFF? NO; ADD MORPH? NO; ADD SCAN? NO; ATYPICAL LYMPHOCYTE FLAG 20 (0-99); FRAGMENT RBC FLAG 0 (0-99); HEMATOCRIT 32.9 % (40.0-51.0); HEMOGLOBIN 11.2 g/dL (13.7-17.5); LEFT SHIFT FLG 0 (0-99); LIPEMIA HEMOLYSIS FLAG 90 (0-99); MEAN CELL HEMOGLOBIN 32.4 pg (27.9-34.1); MEAN CELL VOLUME 95.1 fL (81.5-99.8); MEAN PLATELET VOLUME 9.3 fL (8.7-11.7); PLATELET CLUMPS FLAG 0 (0-99); PLATELET COUNT 235 10^3/uL (150-400); RED BLOOD CELL COUNT 3.46 10^6/uL (4.40-6.38)
[2017-09-23 08:34] LABS: % SATURATION 22 % (20-55); TOTAL IRON BINDING CAPACITY 265 ug/dL (260-490)
[2017-09-23] MEDS: OMEGA-3 FATTY ACIDS 1,000 MG CAP PO SCH (08:42)
[2017-09-23] MEDS: SENNOSIDES/DOCUSATE SODIUM TAB PO SCH ×2 (08:42→22:06)
[2017-09-23] MEDS: ASPIRIN 81 MG CHEWABLE TAB PO SCH (08:42)
[2017-09-23] MEDS: CALCIUM CARBONATE 500 MG TAB PO SCH (08:42)
[2017-09-23] MEDS: GLUCOSAMINE SULF 500 MG CAP PO SCH ×2 (08:42→22:06)
[2017-09-23] MEDS: MULTIVITAMINS 1 EACH TAB PO SCH (08:43)
[2017-09-23] MEDS: CHOLECALCIFEROL VIT D3 1,000 UNITS TAB PO SCH (08:43)
[2017-09-23] MEDS: CYANO/VITAMIN B12 1000 MCG TAB PO SCH (08:43)
[2017-09-23] MEDS: ENOXAPARIN 40 MG/0.4 ML SYR SC SCH (08:43)
[2017-09-23] MEDS: ACETAMINOPHEN 325 MG TAB PO PRN (08:49)
[2017-09-23] MEDS: [UNRECOGNIZED DRUG - OTHER] PO SCH (09:42)
--- NOTE | 2017-09-23 13:30 | SOAPPROG ---
SOAP Progress Note Assessment/Plan: Assessment: 87-year-old man status post ground level fall and left hip fracture on 2016, treated the same day with percutaneous pinning. # Debility status post hip fracture and operative repair. * Initial functional independence measure 86 on 09/19/2017. Pt requiring ModA for LE dressing. still only able to complete hygiene tasks from a seated level. Walking around 35 ft but with CGA/assistive device and takes several minutes. Started with 4inch step on 09/19/17 (has two to enter the home) and required ARAM. * Continue PT and OT to optimize mobility and activities of daily living. # Hypoxia and history of unspecified chronic lung disease. Possible COPD with remote smoking history. * Hypoxia mostly resolved * Continue incentive spirometry and 02 PRN.. # Pain management appears to be adequate with p.r.n. oxycodone. Will schedule acetaminophen beginning 09/23/17. # Postsurgical anemia. CBC improved on labs 11/23/2016. Not iron-deficient. Appropriate reticulocytosis. Hemoccult neg X 2. # CAD: LBBB on EKG; Myocardial perfusion scan 03/21/2015 with inferior infarct, inferior hypokinesis, EF 59%. * Continue aspirin but no need for twice daily. Changed to 81 mg p.o. q.day on 09/22/2017. # Insomnia. Responding to trazodone. # History of gout. Reports some residual left ankle tenderness. * Continue his herbal supplement. Monitor for signs or symptoms of recurrence. # Chronic kidney disease, stage III. Doing well with no worsening noted during his hospitalization. # Possible osteoporosis with femoral neck fracture resulting from ground level fall. * Advise DEXA scan after discharge. Continue calcium and vitamin-D supplementation. # Prophylaxis. He is at elevated risk for DVT. * Resume enoxaparin until his mobility improves. Discharge home with planned for 09/26/2017. This patient has a mobility limitation that significantly impairs 1 or more mobility related ADLs in the home. He can use a walker safely. His functional mobility deficit cannot be is resolved with a cane. He requires a front wheeled walker. 09/23/17 13:25 Subjective: Sleepy this afternoon and reports interrupted sleep overnight. He says he wakes up feeling "allergic." Not specific about the symptoms; he describes a generalized itch within says he does not really have the vocabulary to describe what's going on. Denies dry skin. No rash. Has some increased pain today but reports that he was more active yesterday. He dislikes the side effects of the oxycodone and mostly uses it when he has pain overnight. Objective: Vital Signs Temp Pulse Resp BP Pulse Ox 36.8 C 6 L 16 128/59 H 90 L 09/23/17 08:00 09/23/17 08:00 09/23/17 08:00 09/23/17 08:00 09/23/17 08:00 Laboratory Results 09/23/17 06:00 09/22/17 09/23/17 09/24/17 05:59 05:59 05:59 Intake Total 1150 1280 Output Total 1325 800 Balance -175 480 Physical Exam - Physical Exam General Appearance: WD/WN, alert, no apparent distress, obese Respiratory: No respiratory distress, No accessory muscle use Skin: normal color, warm/dry Neuro/Psych: no motor/sensory deficits, alert, normal mood/affect, oriented x 3 ICD10 Worksheet Patient Problems: Problems Problem Status Onset Anemia Acute Frequent falls Acute Generalized weakness Acute Hip fracture, left Acute Left lower lobe pneumonia Acute Left rib fracture Acute Chronic obstructive lung disease Chronic Hypertension Chronic
[2017-09-23] MEDS ORDERED: ACETAMINOPHEN 325 MG TAB PO SCH (14:00)
[2017-09-23] MEDS: ACETAMINOPHEN 500 MG TAB PO SCH ×2 (14:29→22:06)
[2017-09-23] MEDS: traZODone 50 MG TAB PO PRN (22:06)
[2017-09-24] MEDS: ACETAMINOPHEN 500 MG TAB PO SCH ×3 (05:13→21:14)
[2017-09-24] MEDS: OMEGA-3 FATTY ACIDS 1,000 MG CAP PO SCH (08:54)
[2017-09-24] MEDS: CHOLECALCIFEROL VIT D3 1,000 UNITS TAB PO SCH (08:54)
[2017-09-24] MEDS: GLUCOSAMINE SULF 500 MG CAP PO SCH ×2 (08:54→21:15)
[2017-09-24] MEDS: CALCIUM CARBONATE 500 MG TAB PO SCH (08:54)
[2017-09-24] MEDS: ASPIRIN 81 MG CHEWABLE TAB PO SCH (08:54)
[2017-09-24] MEDS: ENOXAPARIN 40 MG/0.4 ML SYR SC SCH (08:55)
[2017-09-24] MEDS: CYANO/VITAMIN B12 1000 MCG TAB PO SCH (08:55)
[2017-09-24] MEDS: SENNOSIDES/DOCUSATE SODIUM TAB PO SCH ×2 (08:55→21:15)
[2017-09-24] MEDS: MULTIVITAMINS 1 EACH TAB PO SCH (08:55)
[2017-09-24] MEDS: [UNRECOGNIZED DRUG - OTHER] PO SCH (09:06)
--- NOTE | 2017-09-24 12:31 | SOAPPROG ---
SOAP Progress Note Assessment/Plan: Assessment: 87-year-old man status post ground level fall and left hip fracture on 2016, treated the same day with percutaneous pinning. # Debility status post hip fracture and operative repair. * Initial functional independence measure 86 on 09/19/2017. Pt requiring ModA for LE dressing. still only able to complete hygiene tasks from a seated level. Walking around 35 ft but with CGA/assistive device and takes several minutes; has subsequently ambulated 50 ft x 2 with front wheeled walker and cues/standby assist. Started with 4inch step on 09/19/17 (has two to enter the home) and required ARAM. * Continue PT and OT to optimize mobility and activities of daily living. # Hypoxia and history of unspecified chronic lung disease. Possible COPD with remote smoking history. * Hypoxia mostly resolved * Continue incentive spirometry and 02 PRN. # Pain management improved with scheduled acetaminophen beginning 09/23/17. Not using p.r.n. oxycodone. # Postsurgical anemia. CBC improved on labs 11/23/2016. Not iron-deficient. Appropriate reticulocytosis. Hemoccult neg X 2. # CAD: LBBB on EKG; Myocardial perfusion scan 03/21/2015 with inferior infarct, inferior hypokinesis, EF 59%. * Continue aspirin but no need for twice daily. Changed to 81 mg p.o. q.day on 09/22/2017. * LDL 101 an HDL 35 in 2012. Will defer decision regarding statin to his primary care provider or demand generator manager. # Insomnia. Responding to trazodone. # History of gout. Reports some residual left ankle tenderness. * Continue his herbal supplement. Monitor for signs or symptoms of recurrence. # Chronic kidney disease, stage III. Doing well with no worsening noted during his hospitalization. # Possible osteoporosis with femoral neck fracture resulting from ground level fall. * Advise DEXA scan after discharge. Continue calcium and vitamin-D supplementation. # Prophylaxis. He is at elevated risk for DVT. * Resume enoxaparin until his mobility improves. * Given continued limited mobility, will likely continue to benefit from enoxaparin for a full 4 weeks after injury. Discharge home with planned for 09/26/2017. This patient has a mobility limitation that significantly impairs 1 or more mobility related ADLs in the home. He can use a walker safely. His functional mobility deficit cannot be is resolved with a cane. He requires a front wheeled walker. 09/24/17 12:31 Subjective: Slept better last night. Left hip pain is improved as well. Otherwise no complaints. Was compliant with oxygen overnight. Objective: Vital Signs Temp Pulse Resp BP Pulse Ox 36.5 C 56 L 14 136/70 H 97 09/24/17 07:23 09/24/17 07:23 09/24/17 07:23 09/24/17 07:23 09/24/17 07:23 Laboratory Results 09/23/17 06:00 09/23/17 09/24/17 09/25/17 05:59 05:59 05:59 Intake Total 1280 400 450 Output Total 800 700 1 Balance 480 -300 449 Physical Exam - Physical Exam General Appearance: WD/WN, alert, no apparent distress, obese Respiratory: normal breath sounds, No crackles, No rhonchi, No wheezing Cardiac/Chest: regular rate, rhythm, No edema Skin: normal color, warm/dry Neuro/Psych: no motor/sensory deficits, alert, normal mood/affect, oriented x 3 ICD10 Worksheet Patient Problems: Problems Problem Status Onset Chronic obstructive lung disease Chronic Left lower lobe pneumonia Acute Left rib fracture Acute Hypertension Chronic Anemia Acute Frequent falls Acute Generalized weakness Acute Hip fracture, left Acute
[2017-09-25] MEDS: ACETAMINOPHEN 500 MG TAB PO SCH ×3 (05:05→21:00)
[2017-09-25] MEDS: CYANO/VITAMIN B12 1000 MCG TAB PO SCH (08:56)
[2017-09-25] MEDS: MULTIVITAMINS 1 EACH TAB PO SCH (08:56)
[2017-09-25] MEDS: CALCIUM CARBONATE 500 MG TAB PO SCH (08:56)
[2017-09-25] MEDS: ASPIRIN 81 MG CHEWABLE TAB PO SCH (08:56)
[2017-09-25] MEDS: GLUCOSAMINE SULF 500 MG CAP PO SCH ×2 (08:56→21:00)
[2017-09-25] MEDS: CHOLECALCIFEROL VIT D3 1,000 UNITS TAB PO SCH (08:56)
[2017-09-25] MEDS: OMEGA-3 FATTY ACIDS 1,000 MG CAP PO SCH (08:57)
[2017-09-25] MEDS: SENNOSIDES/DOCUSATE SODIUM TAB PO SCH ×2 (08:57→21:00)
[2017-09-25] MEDS: [UNRECOGNIZED DRUG - OTHER] PO SCH (09:04)
[2017-09-25] MEDS: oxyCODONE IR 5 MG TAB PO PRN ×2 (09:40→21:01)
[2017-09-25] MEDS: ENOXAPARIN 40 MG/0.4 ML SYR SC SCH (10:43)
--- NOTE | 2017-09-25 12:59 | SOAPPROG ---
SOAP Progress Note Assessment/Plan: Assessment: 87-year-old man status post ground level fall and left hip fracture on 2016, treated the same day with percutaneous pinning. # Debility status post hip fracture and operative repair. * Initial functional independence measure 86 on 09/19/2017. Pt requiring ModA for LE dressing. still only able to complete hygiene tasks from a seated level. Walking around 35 ft but with CGA/assistive device and takes several minutes; has subsequently ambulated 50 ft x 2 with front wheeled walker and cues/standby assist. Started with 4inch step on 09/19/17 (has two to enter the home) and required ARAM. * Continue PT and OT to optimize mobility and activities of daily living. # Hypoxia and history of unspecified chronic lung disease. Possible COPD with remote smoking history. * Hypoxia mostly resolved * Continue incentive spirometry and 02 PRN. # Pain management improved with scheduled acetaminophen beginning 09/23/17. Not using p.r.n. oxycodone. # Postsurgical anemia. CBC improved on labs 11/23/2016. Not iron-deficient. Appropriate reticulocytosis. Hemoccult neg X 3. # CAD: LBBB on EKG; Myocardial perfusion scan 03/21/2015 with inferior infarct, inferior hypokinesis, EF 59%. * Continue aspirin but no need for twice daily. Changed to 81 mg p.o. q.day on 09/22/2017. * LDL 101 an HDL 35 in 2012. Will defer decision regarding statin to his primary care provider or marine cargo inspector. # Insomnia. Responding to trazodone. # History of gout. Reports some residual left ankle tenderness. * Continue his herbal supplement. Monitor for signs or symptoms of recurrence. # Chronic kidney disease, stage III. Doing well with no worsening noted during his hospitalization. # Possible osteoporosis with femoral neck fracture resulting from ground level fall. * Advise DEXA scan after discharge. Continue calcium and vitamin-D supplementation. # Prophylaxis. He is at elevated risk for DVT. * Resume enoxaparin until his mobility improves. * Given continued limited mobility, will likely continue to benefit from enoxaparin for a full 4 weeks after injury. Discharge home with tomorrow 09/26/2017. This patient has a mobility limitation that significantly impairs 1 or more mobility related ADLs in the home. He can use a walker safely. His functional mobility deficit cannot be is resolved with a cane. He requires a front wheeled walker. 09/25/17 12:57 Subjective: No complaints. Slept well. Minimal pain. Looking for to going home tomorrow. Objective: Vital Signs Temp Pulse Resp BP Pulse Ox 36.7 C 67 14 124/72 H 97 09/25/17 05:14 09/25/17 05:14 09/25/17 05:14 09/25/17 05:14 09/25/17 05:14 Laboratory Results 09/23/17 06:00 09/24/17 09/25/17 09/26/17 05:59 05:59 05:59 Intake Total 400 1540 Output Total 700 876 Balance -300 664 Physical Exam - Physical Exam General Appearance: WD/WN, alert, no apparent distress Respiratory: normal breath sounds, No crackles, No rhonchi, No wheezing Cardiac/Chest: regular rate, rhythm, edema (Trace to 1+ bilateral pretibial.), No diastolic murmur, No systolic murmur Skin: normal color, warm/dry Neuro/Psych: no motor/sensory deficits, alert, normal mood/affect, oriented x 3 ICD10 Worksheet Patient Problems: Problems Problem Status Onset Anemia Acute Frequent falls Acute Generalized weakness Acute Hip fracture, left Acute Left lower lobe pneumonia Acute Left rib fracture Acute Chronic obstructive lung disease Chronic Hypertension Chronic
--- NOTE | 2017-09-25 13:08 | PDOREHIP ---
Admission [facility] - Admission - 3 Day Assessment Period Admission Date/Day 1: 09/16/17 Day 2: 09/17/17 Day 3: 09/18/17 Discharge [facility] - Discharge - 3 Day Assessment Period 2 Days Prior to Anticipated Discharge Date: 09/24/17 1 Day Prior to Anticipated Discharge Date: 09/25/17 Anticipated Discharge Date: 09/26/17 - Discharge Skin Conditions Unhealed Pressure Ulcer (1 or more/Stage 1 or >)-Discharge: 0. No
[2017-09-25 18:30] VITALS: O2SAT 92
[2017-09-26] MEDS: oxyCODONE IR 5 MG TAB PO PRN (01:59)
[2017-09-26] MEDS: ACETAMINOPHEN 500 MG TAB PO SCH ×2 (07:19→14:42)
[2017-09-26 07:34] VITALS: BP 131/78; PULSE 64; RESP 16; TEMP 97.9
[2017-09-26] MEDS: [UNRECOGNIZED DRUG - OTHER] PO SCH (08:45)
[2017-09-26] MEDS: SENNOSIDES/DOCUSATE SODIUM TAB PO SCH (08:46)
[2017-09-26] MEDS: CYANO/VITAMIN B12 1000 MCG TAB PO SCH (08:46)
[2017-09-26] MEDS: ASPIRIN 81 MG CHEWABLE TAB PO SCH (08:46)
[2017-09-26] MEDS: OMEGA-3 FATTY ACIDS 1,000 MG CAP PO SCH (08:46)
[2017-09-26] MEDS: GLUCOSAMINE SULF 500 MG CAP PO SCH (08:46)
[2017-09-26] MEDS: CALCIUM CARBONATE 500 MG TAB PO SCH (08:46)
[2017-09-26] MEDS: MULTIVITAMINS 1 EACH TAB PO SCH (08:46)
[2017-09-26] MEDS: CHOLECALCIFEROL VIT D3 1,000 UNITS TAB PO SCH (08:46)
[2017-09-26] MEDS: ENOXAPARIN 40 MG/0.4 ML SYR SC SCH (08:46)
--- NOTE | 2017-09-26 13:40 | GDS ---
[f rep st] DISCHARGE SUMMARY ADMITTING DIAGNOSIS: Left hip fracture, status post intramedullary nailing. DISCHARGE DIAGNOSIS: Left hip fracture, status post intramedullary nailing. OTHER DIAGNOSES: Postsurgical anemia, coronary artery disease, possible osteoporosis. CONSULTATIONS: There were none. PROCEDURES: There were none. COMPLICATIONS: There were none. HISTORY/HOSPITAL COURSE: This patient was admitted to [facility]. He had fallen and suffered a left hip fracture on 09/13/2017. He had intramedullary nailing done on the same day. Hospital course was complicated by hypoxia requiring oxygen. He had postsurgical anemia as well as thrombocytopenia. Otherwise, he was stabilized and appropriate for inpatient rehabilitation. He had debility when he was 1st admitted. His initial functional independence measure score was 86 on 09/19/2017, which is consistent with assisted living level of function. He was requiring moderate assistance for lower extremity dressing and completing hygiene tasks from a seated position. He had been able to walk 35 feet with contact guard assist and a front wheeled walker. He ambulated slowly. He had considerable improvement during his stay and by the day of discharge, he had walked over 75 feet, but it took him approximately 5 minutes. He had climbed three 6-inch curb steps with front-wheeled walker and standby assist. He continued to do grooming and hygiene from the wheelchair level. He required setup for upper body dressing and setup and standby assist with cues and supervision for safety for lower body dressing. He was able to shower seated with setup, cues and standby assist. He needed some assistance to thoroughly dry his feet. His shower transfer was done with contact guard assist. His hypoxia mostly resolved. He used occasional oxygen at night, though there were no readings below 89% noted by nursing. Pain management was mostly adequate with scheduled acetaminophen. He used occasional p.r.n. oxycodone. His CBC showed improvement in postsurgical anemia. Chart review revealed dyslipidemia in 2012 with an LDL of 101 and HDL of 35. He had a myocardial perfusion scan on 03/21/2015, consistent with an inferior infarct and inferior hypokinesis. He was continued on aspirin, which he had been taking twice daily. This was changed to 81 mg daily. He was advised to follow up with Primary Care or Cardiology regarding the question of statin therapy. He had insomnia during his stay, but this responded well to p.r.n. trazodone, which he did not use every night. He was advised that he may have osteoporosis as he suffered a femoral neck fracture from a ground level fall. He was continued on calcium and vitamin D supplementation. He was advised to obtain a DEXA scan after discharge and to consider anti-resorptive therapy. With his much reduced mobility and recent hip fracture, he was considered to be high risk for DVT. He was maintained on prophylactic enoxaparin. PHYSICAL EXAMINATION: On the day of discharge: VITAL SIGNS: Blood pressure is 131/78, heart rate is 64, respiratory rate is 16, oxygen saturation is 92% on room air. Temperature is 36.6 degrees centigrade. GENERAL: This is a well- nourished, well-developed, overweight man lying in bed, cooperative and in no acute distress. RESPIRATORY: There is no tachypnea, no retractions and no accessory muscle use. SKIN: His incision over his left hip is well healed. NEUROLOGIC: He is alert and oriented x3. There is no focal weakness. He is in good spirits and happy to be going home today. LABORATORIES AND STUDIES: During his stay, CBC on 09/23 showed improving anemia. He continued to have some leukocytosis. His white blood cell count was 11.36 with no left shift. There was a predominance of absolute lymphocytes with a total of 5.16, hemoglobin was 11.2 and hematocrit was 32.9, platelet count was normal. Iron panel on 09/23/2017, was not consistent with iron deficiency; his iron level was 22, his TIBC was 265, and his iron saturation was 22%. Hemoccult stool was negative x3. CONDITION UPON DISCHARGE: Good. ACTIVITY: Ad perri, and he is encouraged to be more active and ambulate more. DIET: Regular. DATE OF NEXT APPOINTMENT: He has followup scheduled with Shweta Manzanares, physician assistant merchandise manager for the Orthopedic service on 09/30/2017, at 2:15 p.m., and with his primary care provider, Dr. Damaris Hannon, on 10/06/2017 at 10:30 a.m. MEDICATIONS AT DISCHARGE: 1. Acetaminophen 1000 mg p.o. q.8 hours. 2. Aspirin 81 mg p.o. daily. 3. Calcium carbonate 500 mg p.o. daily. 4. Cholecalciferol 1000 units p.o. daily. 5. Enoxaparin 40 mg subcutaneous daily through October 10, 2017. 6. Glucosamine 500 mg p.o. twice daily. 7. Gouch supplement 2 p.o. daily. 8. Multivitamin 1 p.o. daily. 9. [place]-3 fatty acids 2000 mg p.o. daily. 10. Oxycodone 2.5 to 5 mg p.o. q.4 hours p.r.n. 11. Senna/docusate 1-2 p.o. twice daily. 12. Trazodone 50 mg p.o. at bedtime. 13. Vitamin B complex 1000 mcg p.o. daily. ISSUES TO BE ADDRESSED AT FOLLOWUP: 1. Functional status: He will continue PT and OT at home, and he can follow up with his primary care provider regarding his progress. 2. Possible osteoporosis. He can follow up with his primary care provider and he should consider a DEXA scan. 3. DVT risk. He continues to have limited mobility and to be at elevated risk. He was advised to continue enoxaparin for a total of 4 weeks post surgery or through October 10. Greater than 35 minutes was spent on this discharge including medication reconciliation, coordination of care and counseling of patient. /[id number]/MODL MTDD
== END 2017-09-26 14:54 | disposition home or self-care (01) | DRG 561 ==
LOC: BREH 14:15
PROVIDERS: ADMIT Internal Medicine; ATTEND Internal Medicine
PROC: F0636ZZ Communicative/Cognitive Integration Skills Treatment of Neurological System - Whole Body (ICD-10-PCS; principal; 2017-09-16)
PROC: F07M3ZZ Motor Function Treatment of Musculoskeletal System - Whole Body (ICD-10-PCS; principal; 2017-09-16)
DX: S72.045D Nondisplaced fracture of base of neck of left femur, subsequent encounter for closed fracture with routine healing (principal); W18.41XD Slipping, tripping and stumbling without falling due to stepping on object, subsequent encounter; Y93.K9 Activity, other involving animal care; Y92.830 Public park as the place of occurrence of the external cause; I12.9 Hypertensive chronic kidney disease with stage 1 through stage 4 chronic kidney disease, or unspecified chronic kidney disease; N18.3 Chronic kidney disease, stage 3 (moderate); G89.29 Other chronic pain; R09.02 Hypoxemia; M81.0 Age-related osteoporosis without current pathological fracture; D64.9 Anemia, unspecified; I44.7 Left bundle-branch block, unspecified; M10.9 Gout, unspecified
CPT/HCPCS: 97110-GO; 97110-GP; 97116-GP; 97161-GP; 97166-GO; 97530-GO; 97530-GP; 97535-GO; J1650

== ENCOUNTER → 2017-11-18 | Outpatient (CLI) | payer OTHER | LOC: BMCIMAGING 08:42 | PROVIDERS: ATTEND Family Medicine | DX: R59.9 Enlarged lymph nodes, unspecified (principal) | CPT/HCPCS: 76536-PO ==

== ENCOUNTER → 2017-12-09 | Outpatient (CLI) | payer OTHER | LOC: FIMAGING 09:37 | PROVIDERS: ATTEND Otolaryngology Otolaryngology/Facial Plastic Surgery | DX: Z11.2 Encounter for screening for other bacterial diseases (principal) ==

== ENCOUNTER → 2018-05-04 | Outpatient (CLI) | payer OTHER | LOC: GIMAGING 17:37 | PROVIDERS: ATTEND Family Medicine | DX: M25.561 Pain in right knee (principal) | CPT/HCPCS: 73562-PO ==

== ENCOUNTER → 2018-11-25 | Outpatient (CLI) | payer OTHER | LOC: GIMAGING 14:19 | PROVIDERS: ATTEND Family Medicine | DX: M10.9 Gout, unspecified (principal) | CPT/HCPCS: 73610-PO ==